=== PATIENT | female | born 1955 | race Caucasian/White ===

== ENCOUNTER 2019-01-12 14:12 | Outpatient (CLI) | payer OTHER, SELFPAY ==
[2019-01-12 14:58] LABS: INR 2.6 (0.9-1.1); Prothrombin Time 25.8 sec (9.3-11.0)
== END 2019-01-12 14:32 ==
PROVIDERS: Visit Provider Internal Medicine
DX: I82.491 Acute embolism and thrombosis of other specified deep vein of right lower extremity (principal); I26.99 Other pulmonary embolism without acute cor pulmonale; Z51.81 Encounter for therapeutic drug level monitoring; Z79.01 Long term (current) use of anticoagulants
CPT/HCPCS: 36415; 85610

== ENCOUNTER 2019-03-02 09:51 | Outpatient (CLI) | payer OTHER, MEDICAID, SELFPAY ==
[2019-03-02 11:05] LABS: Prothrombin Time 44.1 sec (9.3-11.0)
[2019-03-02 11:13] LABS: INR 4.6 (0.9-1.1)
[2019-03-02 11:36] LABS: Anion Gap 9.7 mmol/L (3-11); BUN 14 mg/dL (7-18); CO2 28.3 mmol/L (21.0-32.0); CREATININE 0.79 mg/dL (0.55-1.02); Calcium 8.4 mg/dL (8.5-10.1); Chloride 106 mmol/L (98-107); Glucose 108 mg/dL (74-106); Potassium 4.1 mmol/L (3.5-5.1); Sodium 144 mmol/L (136-145)
[2019-03-02 12:34] LABS: Vitamin D 25 Total 36.3 ng/ml (30-100)
== END 2019-03-02 10:11 ==
PROVIDERS: PCP Nurse Practitioner; Visit Provider Nurse Practitioner
DX: E21.0 Primary hyperparathyroidism (principal); I10 Essential (primary) hypertension; I25.10 Atherosclerotic heart disease of native coronary artery without angina pectoris; Z79.01 Long term (current) use of anticoagulants
CPT/HCPCS: 36415; 80048; 82306; 85610

== ENCOUNTER 2019-03-04 10:46 | Outpatient (CLI) | payer OTHER, MEDICAID, SELFPAY ==
[2019-03-04 14:11] LABS: INR 1.6 (0.9-1.1); Prothrombin Time 15.9 sec (9.3-11.0)
== END 2019-03-04 11:06 ==
PROVIDERS: PCP Nurse Practitioner; Visit Provider Nurse Practitioner
DX: I26.99 Other pulmonary embolism without acute cor pulmonale (principal); Z79.01 Long term (current) use of anticoagulants
CPT/HCPCS: 36415; 85610

== ENCOUNTER 2019-03-11 14:18 | Outpatient (CLI) | payer OTHER, MEDICAID, SELFPAY ==
[2019-03-11 15:00] LABS: INR 1.7 (0.9-1.1); Prothrombin Time 16.5 sec (9.3-11.0)
== END 2019-03-11 14:38 ==
PROVIDERS: PCP Nurse Practitioner; Visit Provider Nurse Practitioner
DX: I25.10 Atherosclerotic heart disease of native coronary artery without angina pectoris (principal); Z79.01 Long term (current) use of anticoagulants
CPT/HCPCS: 36415; 85610

== ENCOUNTER 2019-03-19 14:13 | Outpatient (CLI) | payer OTHER, MEDICAID, SELFPAY ==
[2019-03-19 15:38] LABS: INR 2.1 (0.9-1.1); Prothrombin Time 20.8 sec (9.3-11.0)
== END 2019-03-19 14:33 ==
PROVIDERS: PCP Nurse Practitioner; Visit Provider Nurse Practitioner
DX: I82.491 Acute embolism and thrombosis of other specified deep vein of right lower extremity (principal); I26.99 Other pulmonary embolism without acute cor pulmonale; Z79.01 Long term (current) use of anticoagulants; Z95.828 Presence of other vascular implants and grafts
CPT/HCPCS: 36415; 85610

== ENCOUNTER 2019-04-06 11:15 | Outpatient (CLI) | payer OTHER, MEDICAID, SELFPAY ==
[2019-04-06 14:18] LABS: Prothrombin Time 20.1 sec (9.3-11.0)
== END 2019-04-06 11:35 ==
PROVIDERS: PCP Nurse Practitioner; Visit Provider Nurse Practitioner
DX: I82.491 Acute embolism and thrombosis of other specified deep vein of right lower extremity (principal); Z79.01 Long term (current) use of anticoagulants
CPT/HCPCS: 36415; 85610

== ENCOUNTER 2019-04-13 10:16 | Outpatient (CLI) | payer OTHER, MEDICAID, SELFPAY ==
--- NOTE | 2019-04-13 10:24 | DI.RAD_ITS ---
EXAM: XR HIP RT COMPLETE AP PELVIS CLINICAL HISTORY: right hip pain COMPARISON: No exams were available for comparison FINDINGS: Three views were obtained. There is mild cartilaginous joint space narrowing of both hips. Prominen t subchondral sclerosis, cyst formation and marginal osteophyte formation noted involving both acetab ulae and both femoral heads. No other significant bony or soft tissue abnormality seen. IMPRESSION: Moderate DJD both hips.
--- NOTE | 2019-04-13 10:27 | DI.RAD_ITS ---
EXAM: XR KNEE LT 3V AP,LAT,CHRISTO CLINICAL HISTORY: left knee pain TECHNIQUE: COMPARISON: No exams were available for comparison FINDINGS: Three views were obtained. There is narrowing of the medial tibiofemoral cartilaginous joint space. There are very prominent marginal osteophytes of the medial tibiofemoral joint and patellofemoral rodrigo int. No other significant bony abnormality seen. IMPRESSION: DJD predominantly involving medial tibiofemoral joint.
--- NOTE | 2019-04-13 10:29 | DI.RAD_ITS ---
EXAM: XR KNEE RT 3V AP,LAT,CHRISTO CLINICAL HISTORY: right knee pain COMPARISON: XR KNEE LT 3V AP,LAT,CHRISTO from 04/13/2019 FINDINGS: Three views were obtained. There is narrowing of the medial tibiofemoral cartilaginous joint space. Moderate hypertrophic marginal osteophyte formation noted involving all 3 joints of the knee. There is deformity of the articular surface medial and lateral femoral condyles. Mild subchondral scleros is noted involving medial femoral condyle. IMPRESSION: Multi compartment DJD as described above.
== END 2019-04-13 10:36 ==
PROVIDERS: PCP Nurse Practitioner; Visit Provider Physician Assistant
DX: M25.561 Pain in right knee (principal); M25.562 Pain in left knee; M17.0 Bilateral primary osteoarthritis of knee; M25.551 Pain in right hip; M16.0 Bilateral primary osteoarthritis of hip
CPT/HCPCS: 73562; 73502

== ENCOUNTER 2019-04-20 09:16 | Outpatient (CLI) | payer OTHER, MEDICAID, SELFPAY ==
[2019-04-20 10:57] LABS: INR 1.9 (0.9-1.1); Prothrombin Time 18.6 sec (9.3-11.0)
== END 2019-04-20 09:36 ==
PROVIDERS: PCP Nurse Practitioner; Visit Provider Nurse Practitioner
DX: I26.99 Other pulmonary embolism without acute cor pulmonale (principal); I82.491 Acute embolism and thrombosis of other specified deep vein of right lower extremity; I25.10 Atherosclerotic heart disease of native coronary artery without angina pectoris; Z95.828 Presence of other vascular implants and grafts
CPT/HCPCS: 36415; 85610

== ENCOUNTER 2019-04-30 01:01 | Outpatient (CLI) | payer MEDICARE, MEDICAID, SELFPAY ==
--- NOTE | 2019-04-30 14:50 | DI.RAD_ITS ---
EXAM: RF JOINT INJECTION FLUORO GUID CLINICAL HISTORY: R HIP INJ UNDER FLUORO,rt hi pain, m25.551 TECHNIQUE: Fluoroscopy was utilized by Dr. Michael during right hip injection. COMPARISON: No exams were available for comparison FINDINGS: Hard copy shows intraarticular injection of the right hip. Fluoro time was 0.9 minutes.
[2019-04-30] MEDS: methylPREDNISolone ACETATE 80 MG/ML VIAL IM (15:42)
[2019-04-30] MEDS: Omnipaque 300 MG/ML 10 ML BTL IJ (15:42)
[2019-04-30] MEDS: Bupivacaine 0.5% Pres-Free 10 ML VIAL 50 ML IJ (15:43)
--- NOTE | 2019-05-01 07:19 | W.PROCNOTE ---
Date of service: 04/30/19 Time of Service: 15:19 Procedure Note Date of procedure: 04/30/19 Procedure: Right Hip Injection with Fluoroscopic Guidance Surgeon/Proceduralist/Physician: Harvinder Michael Procedure Diagnosis: Right Hip Osteoarthritis Procedure Indications: Radha has had persistent pain of the RIGHT hip and groin. Noninvasive measures have been tried. To serve as both diagnostic and therapeutic, an injection under fluoroscopy was recommended. I had discussed the risks of the procedure and the patient elected to proceed. Procedure Description: Radah was greeted in the flouroscopy room. The correct side was identified and the consent was reviewed with the patient and signed. The patient was then placed in the supine position on the fluoroscopy table. The RIGHT hip was then prepped with Chloraprep. The anterolateral injection starting point was identiifed by bony landmarks and fluoroscopy. The skin and soft tissue in the tract of the injection was anesthetized with 1% Lidocaine. A spinal needle was then inserted deep into the hip joint at the level of the lateral femoral neck under fluoroscopic guidance. A small amount of Omnipaque solution was injected to confirm intraarticular placement. Once confirmed, the hip was injected with 6cc of 0.5% Bupivicaine and 80mg of Depo-Medrol. A bandaid was placed on the injection site. The patient tolerated the procedure well and noted improvement in pre-injection pain.
== END 2019-04-30 01:21 ==
PROVIDERS: PCP Nurse Practitioner; Visit Provider Student in an Organized Health Care Education/Training Program
DX: M25.551 Pain in right hip (principal); M16.11 Unilateral primary osteoarthritis, right hip; Z12.11 Encounter for screening for malignant neoplasm of colon; Z86.010 Personal history of colon polyps; I11.0 Hypertensive heart disease with heart failure; I50.9 Heart failure, unspecified; E11.9 Type 2 diabetes mellitus without complications; Z79.84 Long term (current) use of oral hypoglycemic drugs; Z79.01 Long term (current) use of anticoagulants
CPT/HCPCS: 20610; 77002; J1040

== ENCOUNTER 2019-05-05 11:46 | Outpatient (CLI) | payer MEDICARE, MEDICAID, SELFPAY ==
[2019-05-05 12:55] LABS: INR 2.2 (0.9-1.1); Prothrombin Time 21.4 sec (9.3-11.0)
== END 2019-05-05 12:06 ==
PROVIDERS: PCP Nurse Practitioner; Visit Provider Nurse Practitioner
DX: I82.491 Acute embolism and thrombosis of other specified deep vein of right lower extremity (principal); Z79.01 Long term (current) use of anticoagulants
CPT/HCPCS: 36415; 85610

== ENCOUNTER 2019-05-14 10:09 | Day surgery (SDC) | payer MEDICARE, SELFPAY ==
[2019-05-14 10:25] VITALS: BP 117/85; PULSE 67; RESP 20; TEMP 36.5; O2SAT 97
[2019-05-14] MEDS: Lactated Ringers 1,000 ML 80 ML IV (11:00)
--- NOTE | 2019-05-14 11:56 | DI.CT_ITS ---
EXAM: CT CHEST PE CTA CLINICAL HISTORY: left lung pain similar to prior PE/hx of mult PE. TECHNIQUE: Imaging Protocol: Axial CT angiography was performed with multi-slice acquisition and mu lti-planar and/or 3D reconstructions. CONTRAST MATERIAL: Intravenous: Omnipaque 350 Contrast volume: 100 ml COMPARISON: No exams were available for comparison FINDINGS: Pulmonary Arteries: No evidence of filling defect to suggest pulmonary emboli. Tracheobronchial tree: Patent where visualized. Mediastinum and Regla: No dominant adenopathy or fluid collection. Pulmonary parenchyma: No consolidation or dominant measurable mass. No architectural distortion. Pleura: No effusion or pneumothorax. Heart: The heart is not dilated. Mild coronary artery calcifications are seen. Aorta: Thoracic aorta non-dilated. Upper abdomen: Enlarged fatty liver. Bones: Mild degenerative changes in the thoracic spine. IMPRESSION: No evidence of pulmonary embolism or other acute abnormality. DATA REPOSITORY: All CT scans at this facility are submitted to the National Radiology Data Registry (NRDR) Dose Index Registry (DIR) with the [employer] (ACR). RADIATION OPTIMIZATION: All CT scans at this facility use at least one of these dose optimization te chniques: automated exposure control; mA and/or kV adjustment per patient size (includes targeted exa ms where dose is matched to clinical indication); or iterative reconstruction.
[2019-05-14 12:08] LABS: Prothrombin Time 10.4 sec (9.3-11.0)
--- NOTE | 2019-05-14 12:13 | PGE_ITS ---
Date of Service Date of service: 05/14/19 Time of Service: 12:13 Assessment and Plan Assessment and plan (1) Family hx of colon cancer: Status: Acute Assessment and plan: will do Cologuard (2) Chronic anticoagulation: Status: Acute Assessment and plan: resume coumadin therapy I'm going to talk to Dr. Alarcon about bridging lovenox. (3) Presence of IVC filter: Status: Acute (4) Asthma: Status: Chronic Qualifiers: Asthma severity: moderate Asthma persistence: persistent Asthma complication type: uncomplicated Qualified Code(s): J45.40 - Moderate persistent asthma, uncomplicated (5) Chronic diastolic (congestive) heart failure: Status: Acute (6) CAD (coronary artery disease): Status: Chronic Qualifiers: Coronary Disease-Associated Artery/Lesion type: unspecified vessel or lesion type [place] vs. transplanted heart: [place] heart Associated angina: angina presence unspecified Qualified Code(s): I25.10 - Atherosclerotic heart disease of [place] coronary artery without angina pectoris (7) Chronic deep vein thrombosis (DVT): Status: Acute (8) Chronic deep vein thrombosis (DVT) of left femoral vein: Status: Acute (9) Chronic deep vein thrombosis (DVT) of popliteal vein of left lower extremity: Status: Acute Subjective Subjective Interval history since last seen: pt is here today for a routine CE for screening. Her mther had CRC in her 70's. She has been having no changes in her bowels. She has no pain or difficulty having a bowel movement and has not noted any bleeding. She has a hx of unprovoked PE's. She has been worked up for a hypercoag d/o- all genetic testing was neg. Her last US dopplers was in fall of 2018 and does show chronic DVT in femoral/popliteal veins. But there were no clots on long stalk or near the bifurcaton. She has an IVC filter in place. She had a spontaneous splenic rupture while she was on a NOAC. 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 This was treated w/ emobolization. The IVC filter was placed and she was kept off of anticoag x1 month. She had a JANIYA in 2017: EF 65% mild LV enlargment mild pulm HTN no signif vavular Dx. She had cardiac stents done 8 yrs ago She was seen by Hem at [facility] adn was told she did not need to bridge for the CE and just hold coumadin for 5 days Today she does admit that she has been having pain in ht eleft lung since it got cold out - and it is similar to the pain she had when she had her first clot. She is always SOB and there isno change in this today. She has no cough and no CP today. no URT s/s. She has been off coumadin for 5 days POC cardiac US- the pic is very grainy and I cannot visualize any clots or distinct valve motion. EF/function appears to be preserved. But the pic is not clear enough to detect any clots today. Given the pain she has been having and chronic SOB- I don't think she stable for elective anethesia. CE is low risk procedure, but I given her Hx of mult PE's and chronic DVT, I think she should have been bridged w/ LMH. I don't think she is good candidate for an elective procedure and she should have a CT angio of chest for PE. we will cancel the CE today. She can do a colo guard at home. Exam Chest Chest: normal inspection of the chest Resp Effort & Inspection: normal respiratory effort and able to speak in complete sentences Auscultation: clear to auscultation bilaterally Cardio Rate: regular rate Rhythm: regular rhythm Heart Sounds: S1 normal and S2 normal GI Palpation: soft, nontender and No ascites Auscultation: normal bowel sounds Objective Objective Clinical Data: Vital Signs Temperature 36.5 C 05/14/19 10:25 Pulse 67 05/14/19 10:25 Pulse Rhythm Regular 05/14/19 10:25 Respiratory Rate 20 05/14/19 10:25 Respiratory Depth Normal 05/14/19 10:25 Blood Pressure 117/85 05/14/19 10:25 Pulse Oximetry 97 05/14/19 10:25 Oxygen Delivery Method Room Air 05/14/19 10:25 Oxygen Flow Rate 0 05/14/19 10:25 Pain Level 0 05/14/19 10:25 Intake & Output 05/13/19 05/14/19 05/14/19 23:59 11:59 23:59 Weight 105.7 kg
--- NOTE | 2019-05-14 12:32 | NUR.NOTE ---
Colonoscopy cancelled. chest CT pending. #18 left AC saline lock placed. [id number] remains at bedside. Drnking coffee and tolerating well. Nursing Note:
[2019-05-14 12:50] LABS: D-Dimer 347 ng/mlFEU (<500)
[2019-05-14] MEDS: Omnipaque 350 MG/ML 100 ML BTL IJ (12:55)
--- NOTE | 2019-05-14 13:44 | W.PM.DSUDISC ---
Discharge Plan Disposition Patient Disposition: HOME Condition: Good Discharge Details Reason For Visit: cancelled procedure Attending Provider: Radha Liu Primary Care Provider: Kylee Yin Home Meds and New Rx's Prescriptions: New enoxaparin 100 mg/mL Syringe 100 mg subcut NOW 1 Days RF: 0 enoxaparin 100 mg/mL syringe 100 mg SC Q12H Qty: 8 RF: 0 Continued Shingrix (PF) 50 mcg/0.5 mL suspension for reconstitution 0.5 ml IM ONCE Qty: 1 RF: 0 polyethylene glycol 3350 17 gram/dose powder 238 g PO ONCE Qty: 238 RF: 0 omeprazole 40 mg capsule,delayed release(DR/EC) 40 mg PO Q OTHER DAY Qty: 90 RF: 3 atorvastatin 40 mg tablet 40 mg PO QHS Qty: 90 RF: 3 furosemide 20 mg tablet 20 mg PO DAILY Qty: 90 RF: 3 losartan 25 mg tablet 25 mg PO DAILY Qty: 90 RF: 3 warfarin 5 mg tablet 5 mg PO DAILY Qty: 120 RF: 0 albuterol sulfate 90 mcg/actuation HFA aerosol inhaler 2 puff IH Q4H PRNRF: 0 calcium carbonate-vit D3-min 600 mg calcium- 400 unit tablet 1 tab PO TID RF: 0 cholecalciferol (vitamin D3) 50,000 unit capsule 50,000 unit PO QMONTH RF: 0 coenzyme Q10 10 mg capsule 10 mg PO Q OTHER DAY RF: 0 fluticasone propion-salmeterol [Advair Diskus] 250-50 mcg/dose blister with device 1 inh IH BID RF: 0 metformin 750 mg tablet extended release 24 hr 750 mg PO QPM RF: 0 nitroglycerin 0.4 mg tablet, sublingual 0.4 mg SL Q5M PRNRF: 0 clonazepam 0.5 mg tablet 0.25 mg PO BID PRN (Reason: anxiety) RF: 0 magnesium chloride 64 mg tablet,delayed release (DR/EC) 250 mg PO DAILY RF: 0 sertraline 25 mg tablet 25 mg PO DAILY Qty: 30 RF: 1 bupropion HCl 150 mg tablet extended release 24 hr 150 mg PO DAILY RF: 0 Discontinued bisacodyl [Dulcolax (bisacodyl)] 5 mg tablet,delayed release (DR/EC) 5 mg PO ONCE Qty: 4 RF: 0 Discharge Instructions Additional Instructions: -resume coumadin today -lovenox q 12 until therapeutic. -F/u saturday for INR check Activity:: Activity as Tolerated Diet:: Carb Counting Discharge Orders Discharge Orders: Discharge Order (Routine); Ordered 05/14/19 Ordered By: Radha Liu DS: Diagnosis Discharge Diagnosis (1) Family hx of colon cancer: Status: Acute (2) Chronic anticoagulation: Status: Acute (3) Presence of IVC filter: Status: Acute (4) Asthma: Status: Chronic (5) Chronic diastolic (congestive) heart failure: Status: Acute (6) CAD (coronary artery disease): Status: Chronic (7) Chronic deep vein thrombosis (DVT): Status: Acute (8) Chronic deep vein thrombosis (DVT) of left femoral vein: Status: Acute (9) Chronic deep vein thrombosis (DVT) of popliteal vein of left lower extremity: Status: Acute
[2019-05-14] MEDS: Enoxaparin 100 MG/ML SYR SC (14:04)
--- NOTE | 2019-05-14 14:08 | NUR.NOTE ---
IV access X2 discontinued. Lovenox given. Discharged to home with [id number].Nursing Note:
== END 2019-05-14 14:20 | disposition home or self-care (01) ==
PROVIDERS: PCP Nurse Practitioner; Visit Provider Surgery
DX: Z12.11 Encounter for screening for malignant neoplasm of colon (principal); Z80.0 Family history of malignant neoplasm of digestive organs; Z53.09 Procedure and treatment not carried out because of other contraindication; R07.89 Other chest pain; Z86.711 Personal history of pulmonary embolism; Z95.828 Presence of other vascular implants and grafts; Y66 Nonadministration of surgical and medical care
CPT/HCPCS: 36415; 71275; 99232; 85379; 85610; J1650; J3490

== ENCOUNTER 2019-05-19 09:13 | Outpatient (CLI) | payer MEDICARE, SELFPAY ==
[2019-05-19 12:35] LABS: Prothrombin Time 9.7 sec (9.3-11.0)
== END 2019-05-19 09:33 ==
PROVIDERS: PCP Nurse Practitioner; Visit Provider Nurse Practitioner
DX: Z79.01 Long term (current) use of anticoagulants (principal); I26.99 Other pulmonary embolism without acute cor pulmonale
CPT/HCPCS: 36415; 85610

== ENCOUNTER 2019-05-22 08:59 | Outpatient (CLI) | payer MEDICARE, MEDICAID, SELFPAY ==
[2019-05-22 12:09] LABS: INR 1.1 (0.9-1.1); Prothrombin Time 11.1 sec (9.3-11.0)
== END 2019-05-22 09:19 ==
PROVIDERS: PCP Nurse Practitioner; Visit Provider Nurse Practitioner
DX: I25.10 Atherosclerotic heart disease of native coronary artery without angina pectoris (principal); Z86.718 Personal history of other venous thrombosis and embolism; Z79.01 Long term (current) use of anticoagulants
CPT/HCPCS: 36415; 83036; 85610

== ENCOUNTER → 2019-05-25 10:58 | Outpatient (BNVA) | payer MEDICARE, SELFPAY | PROVIDERS: PCP Nurse Practitioner; Referring Provider Nurse Practitioner; Visit Provider Student in an Organized Health Care Education/Training Program | DX: M17.11 Unilateral primary osteoarthritis, right knee (principal); M17.12 Unilateral primary osteoarthritis, left knee; M16.11 Unilateral primary osteoarthritis, right hip | CPT/HCPCS: 20610; 99213; J1040 ==

== ENCOUNTER 2019-05-26 10:12 | Outpatient (CLI) | payer MEDICARE, SELFPAY ==
[2019-05-26 11:21] LABS: INR 1.4 (0.9-1.1); Prothrombin Time 13.6 sec (9.3-11.0)
== END 2019-05-26 10:32 ==
PROVIDERS: PCP Nurse Practitioner; Visit Provider Nurse Practitioner
DX: I25.10 Atherosclerotic heart disease of native coronary artery without angina pectoris (principal); Z86.718 Personal history of other venous thrombosis and embolism; Z79.01 Long term (current) use of anticoagulants
CPT/HCPCS: 36415; 85610

== ENCOUNTER 2019-10-06 11:59 | Outpatient (REF) | payer MEDICARE, SELFPAY ==
[2019-10-06 12:55] LABS: Calculated LDL 84 mg/dL (<100); Cholesterol 168 mg/dL (<200); HDL Cholesterol 46 mg/dL (40-60); Triglyceride 190 mg/dL (<150)
[2019-10-06 13:06] LABS: Hemoglobin A1C 6.2 % (3.8-5.6)
== END 2019-10-06 12:19 ==
LOC: LBN 11:59
PROVIDERS: PCP Nurse Practitioner; Visit Provider Nurse Practitioner
DX: E11.9 Type 2 diabetes mellitus without complications (principal)
CPT/HCPCS: 80061; 83036

== ENCOUNTER → 2019-11-10 13:19 | Outpatient (BNVA) | payer MEDICARE, SELFPAY | PROVIDERS: PCP Nurse Practitioner; Referring Provider Nurse Practitioner; Visit Provider Internal Medicine Cardiovascular Disease | DX: I25.10 Atherosclerotic heart disease of native coronary artery without angina pectoris (principal); I50.32 Chronic diastolic (congestive) heart failure; I11.0 Hypertensive heart disease with heart failure; I82.502 Chronic embolism and thrombosis of unspecified deep veins of left lower extremity; E11.9 Type 2 diabetes mellitus without complications; Z79.84 Long term (current) use of oral hypoglycemic drugs; Z79.01 Long term (current) use of anticoagulants | CPT/HCPCS: 99203; 99214 ==

== ENCOUNTER 2020-03-08 09:41 | Outpatient (CLI) | payer MEDICARE, SELFPAY ==
[2020-03-10 21:30] LABS: COVID-19 RT-PCR Result NEGATIVE (Negative)
== END 2020-03-08 10:01 ==
PROVIDERS: PCP Nurse Practitioner; Visit Provider Nurse Practitioner
DX: Z11.59 Encounter for screening for other viral diseases (principal)
CPT/HCPCS: U0003

== ENCOUNTER 2020-05-03 02:17 | Outpatient (CLI) | payer MEDICARE, SELFPAY ==
[2020-05-03 13:04] LABS: CREATININE 0.9 mg/dL (0.55-1.02); Calculated LDL 87 mg/dL (<100); Cholesterol 182 mg/dL (<200); HDL Cholesterol 58 mg/dL (40-60); Potassium 4.8 mmol/L (3.5-5.1); Triglyceride 185 mg/dL (<150)
[2020-05-03 13:51] LABS: COMMENT (LAB VIEW ONLY) 161.26 mg/dL; Microalb ug/mg Crea 7.2 ug/mg Cr
== END 2020-05-03 02:18 | disposition home or self-care (01) ==
LOC: LOS 02:18
PROVIDERS: PCP Nurse Practitioner; Visit Provider Nurse Practitioner
DX: E11.9 Type 2 diabetes mellitus without complications (principal); I10 Essential (primary) hypertension; E21.0 Primary hyperparathyroidism
CPT/HCPCS: 36415; 80061; 82043; 82310; 82565; 82570; 84132

== ENCOUNTER → 2020-06-03 13:40 | Outpatient (BNVA) | payer MEDICARE, SELFPAY | PROVIDERS: PCP Nurse Practitioner; Referring Provider Nurse Practitioner; Visit Provider Internal Medicine Cardiovascular Disease | DX: I25.10 Atherosclerotic heart disease of native coronary artery without angina pectoris (principal); E78.00 Pure hypercholesterolemia, unspecified; I10 Essential (primary) hypertension | CPT/HCPCS: 99214; 99213 ==

== ENCOUNTER 2020-06-09 00:42 | Outpatient (CLI) | payer MEDICARE, SELFPAY ==
--- NOTE | 2020-06-09 07:30 | DI.NM_ITS ---
APPROVED REPORT Exam: Exercise Treadmill Patient Location: Out-Patient Room/Bed: Stress Nurse: Emily Parker RN Ordering Provider:KATHE ESPITIA, Contact Number: BMI: 42.73 Baseline Rhythm: Sinus Rhythm Indications: CORONARY ARTERY DISEASE. Medical History Medical History: CAD, HTN, Hypercholesteremia, Anxiety, Depression, DVT, DM, GERD, Obesity, Tobacco u se Cardiac Medications: Advair inhaler, Albuterol sulfate inhaler, Apixaban, Aspirin, Atorvastatin, Janee zyme Q10, Losartan, Magnesium chloride, Metformin, Nitro SL, Omeprazole., Allergies: Amoxicillin Cardiac Risk Factors: FHX of CAD, HTN, Hyperlipidemia, DM, Smoking (former) , Obesity Previous Cardiac Procedures: PCI w/ KEVIN (2011) Pretest Chest Pain Characteristics: No chest pain Exercise History: Sedentary Physical Disabilities: None. Lung Sounds: Clear to auscultation Heart Sounds: Regular Stress Test Details Test: Exercise stress testing was performed using a Brian protocol. Nuclear Acquisition: Rest Tc-99m/Stress Tc-99m 1 day Rest Isotope: Tc-99m Sestamibi. Dose: 14.2 Date: 06/09/20 Injection Time: 1115 Stress Isotope: Tc-99m Sestamibi. Dose: 45.2 Date: 06/09/20 Injection Time: 1325 HR Resting HR Supine: 61 bpm Max Heart Rate (APMHR): 154.335116 bpm Resting HR Standin bpm Target HR (85% APMHR): 130.125626 bpm Max HR Achieved: 143 bpm % of APMHR: 92.86 Recovery HR: 79 bpm HR response to stress: Normal HR response to stress BP Resting BP Supine: 138/76 mmHg Resting BP Standin/82 mmHg Max BP: 178/76 mmHg Recovery BP: 144/88 mmHg BP response to stress: Normal blood pressure response to stress. ECG Resting ECG: Sinus Rhythm Ectopy: None. Stress ECG: Sinus Tachycardia ST Change: No significant ST segment changes noted Arrhythmia: None Recovery ECG: Sinus Rhythm, Recovery ST Change: No significant ST segment changes noted Recovery Arrhythmia: PAC, PVC Clinical Reason for Termination: Fatigue Stress Symptoms: General Fatigue, Dyspnea Exercise duration: 5 min19 sec Highest Stage Reached: Stage 2: 2.5 mph at 12% grade. Exercise capacity: 7.05 METs Bob Treadmill Score: 5 Rate Pressure Product: [id number] Stress ECG Conclusion 1. The resting electrocardiogram was normal 2. Patient exercised on the Brian protocol and completed a workload of 7.05 METS, limited by fatigue. She achieved 92% of predicted heart rate for age 3. Normal heart rate and blood pressure response to exercise 4. Echocardiographically negative for myocardial ischemia 5. Sporadic atrial and ventricular ectopic beats noted Bob Treadmill Score is 5 which is Low risk. Stress Test Summary STAGE Time (mins) Speed (mph) Grade (%) HR BP SYMPTOMS METS Supine 61 138/76 Standing 73 132/82 1 3 1.7 10 119 154/70 4.6 2 6 2.5 12 SpO2 98% 7 1 min recovery 119 178/76 3 min recovery 77 172/88 6 min recovery 79 144/88 MPI Conclusion Normal myocardial perfusion without evidence of prior infarction or ischemia EF was 71% Radiologist Interpretation Radiologist Interpretation by: Nam Allen MD Interpretation Date/Time: 06/14/2020 16:23:05
== END 2020-06-09 01:02 ==
LOC: DI 00:42
PROVIDERS: PCP Nurse Practitioner; Visit Provider Internal Medicine Cardiovascular Disease
DX: I25.10 Atherosclerotic heart disease of native coronary artery without angina pectoris (principal); Z82.49 Family history of ischemic heart disease and other diseases of the circulatory system; I10 Essential (primary) hypertension; E78.5 Hyperlipidemia, unspecified; E11.9 Type 2 diabetes mellitus without complications; Z87.891 Personal history of nicotine dependence; E66.9 Obesity, unspecified; I49.1 Atrial premature depolarization; I49.3 Ventricular premature depolarization
CPT/HCPCS: 78452; 93016; 93018; 93306; 93017

== ENCOUNTER → 2020-06-10 13:31 | Outpatient (BNVA) | payer MEDICARE, SELFPAY | PROVIDERS: PCP Nurse Practitioner; Referring Provider Nurse Practitioner; Visit Provider Internal Medicine Cardiovascular Disease | DX: I25.10 Atherosclerotic heart disease of native coronary artery without angina pectoris (principal) | CPT/HCPCS: 99213 ==

== ENCOUNTER → 2020-06-30 08:47 | Outpatient (BNVA) | payer MEDICARE, SELFPAY | PROVIDERS: PCP Nurse Practitioner; Referring Provider Nurse Practitioner; Visit Provider Student in an Organized Health Care Education/Training Program | DX: M67.431 Ganglion, right wrist (principal); Z95.828 Presence of other vascular implants and grafts; Z79.01 Long term (current) use of anticoagulants | CPT/HCPCS: 99213 ==

== ENCOUNTER 2021-05-03 01:39 | Outpatient (CLI) | payer MEDICARE, SELFPAY ==
[2021-05-03 08:27] LABS: Hemoglobin A1C 6.6 % (<5.7)
[2021-05-03 09:10] LABS: Anion Gap 9.9 mmol/L (3-11); BUN 15 mg/dL (7-18); CO2 27.1 mmol/L (21.0-32.0); CREATININE 0.8 mg/dL (0.55-1.02); Calcium 8.6 mg/dL (8.5-10.1); Calculated LDL 88 mg/dL (<100); Chloride 106 mmol/L (98-107); Cholesterol 183 mg/dL (<200); Glucose 120 mg/dL (74-106); HDL Cholesterol 55 mg/dL (40-60); Potassium 4.4 mmol/L (3.5-5.1); Sodium 143 mmol/L (136-145); Triglyceride 203 mg/dL (<150)
== END 2021-05-03 01:40 | disposition home or self-care (01) ==
LOC: LBO 01:39
PROVIDERS: PCP Nurse Practitioner; Visit Provider Nurse Practitioner
DX: I10 Essential (primary) hypertension (principal); E11.9 Type 2 diabetes mellitus without complications
CPT/HCPCS: 36415; 80048; 80061; 83036

== ENCOUNTER 2021-05-29 03:01 | Outpatient (CLI) | payer MEDICARE, SELFPAY ==
--- NOTE | 2021-05-29 07:15 | DI.MAMMO_ITS ---
Exam(s) MAMMO SCREENING EXAM: MAMMO SCREENING CLINICAL HISTORY: screening,z12.39 TECHNIQUE: Mammograms were interpreted according to the usual protocol including computer analysis w [employer] CAD system, tomosynthesis and C-view imaging. COMPARISON: 2014 through 2018 from [place], [place] FINDINGS: The breasts are composed of mainly fatty density , Breast Density category A. No suspicious masses or suspicious microcalcifications are seen. No skin thickening or abnormal axillary lymph nodes are seen. There has been no significant change from prior exams. IMPRESSION: BI-RADS Category 1, Negative mammogram Yearly screening mammography is recommended. Breast Density - Category A, fatty density. A negative radiographic report should not delay biopsy if a dominant or clinically suspicious mass is present. Up to ten percent of cancers are not identified on mammography. A negative report may reinforce clinical impression. Adenosis and dense breasts may obscure an underlying neoplasm. False positive reports average 6 to 10%. Patient will receive a letter notifying them of these results.
== END 2021-05-29 03:21 ==
PROVIDERS: PCP Nurse Practitioner; Visit Provider Nurse Practitioner
DX: Z12.31 Encounter for screening mammogram for malignant neoplasm of breast (principal)
CPT/HCPCS: 77063; 77067

== ENCOUNTER 2021-07-28 13:11 | Outpatient (CLI) | payer MEDICARE, SELFPAY ==
[2021-07-28 15:03] LABS: Anion Gap 10.1 mmol/L (3-11); BUN 17 mg/dL (7-18); CO2 27.9 mmol/L (21.0-32.0); CREATININE 0.8 mg/dL (0.55-1.02); Calcium 8.9 mg/dL (8.5-10.1); Chloride 104 mmol/L (98-107); Glucose 105 mg/dL (74-106); NT-proBNP 25 pg/mL (<300); Potassium 4.1 mmol/L (3.5-5.1); Sodium 142 mmol/L (136-145)
== END 2021-07-28 13:12 | disposition home or self-care (01) ==
LOC: LBO 13:15
PROVIDERS: PCP Nurse Practitioner; Visit Provider Nurse Practitioner Family
DX: R06.02 Shortness of breath (principal); I50.32 Chronic diastolic (congestive) heart failure
CPT/HCPCS: 36415; 80048; 83735; 83880

== ENCOUNTER 2021-08-03 12:12 | Emergency (ER) | payer MEDICARE, SELFPAY ==
--- NOTE | 2021-08-03 12:28 | W.ED.GENAD ---
Discharge Plan Disposition Patient Disposition: HOME Condition: Stable Discharge Details Clinical Impression: Rash Primary Care Provider: Kylee Yin ED Provider: Laura Coughlin Home Meds and New Rx's Prescriptions: New methylprednisolone [Medrol (Antwon)] 4 mg tablets,dose pack See Rx Instructions .ROUTE .COMPLEX Qty: 21 0RF Rx Instructions: orally per package directions Continued metformin 750 mg tablet extended release 24 hr 750 mg PO QPM Qty: 90 4RF nitroglycerin 0.4 mg tablet, sublingual 0.4 mg sublingual Q5M PRN (Reason: chest pain) Qty: 90 3RF Rx Instructions: 1 sl prn chest pain omeprazole 40 mg capsule,delayed release(DR/EC) 40 mg PO DAILY Qty: 90 3RF sertraline 100 mg tablet 100 mg PO DAILY Qty: 30 0RF fluticasone propion-salmeterol [Advair Diskus] 250-50 mcg/dose blister with device 1 inh IH BID Qty: 60 11RF nystatin 100,000 unit/gram powder 1 applic topical TID Qty: 30 0RF cefpodoxime 100 mg tablet 100 mg PO BID Qty: 14 0RF Rx Instructions: must administer with a meal/food magnesium chloride 64 mg tablet,delayed release (DR/EC) 256 mg PO DAILY triamcinolone acetonide 0.1 % cream 1 applic topical BID Qty: 30 2RF Rx Instructions: local application on palms in thin layer twice a day until rash is gone aspirin [Adult Low Dose Aspirin] 81 mg tablet,delayed release (DR/EC) 81 mg PO DAILY Qty: 30 0RF albuterol sulfate 90 mcg/actuation HFA aerosol inhaler 2 puff IH Q4H PRN (Reason: wheezing) Qty: 18 3RF coenzyme Q10 10 mg capsule 200 mg PO DAILY cholecalciferol (vitamin D3) 1,250 mcg (50,000 unit) capsule 50,000 unit PO QMONTH Qty: 14 0RF bupropion HCl 150 mg tablet extended release 24 hr 150 mg PO QAM Qty: 90 4RF Eliquis 2.5 mg tablet 2.5 mg PO BID Qty: 180 4RF hydroxyzine HCl 25 mg tablet 25 mg PO TID PRN (Reason: itching) Qty: 60 0RF atorvastatin 40 mg tablet 40 mg PO QHS Qty: 90 3RF furosemide 20 mg tablet 20 mg PO DAILY Qty: 90 3RF losartan 50 mg tablet 50 mg PO DAILY Qty: 90 3RF Discharge Instructions Instructions: Acute Rash (ED) Additional Instructions: Stop taking the antibiotic you have been taking this week. You can continue the topical steroid cream as directed. If you have no relief or worsening of symptoms today, start the oral steroid prescription which has been sent electronically to your pharmacy. You can take chtp-yfl-linelhw non-sedating antihistamines such as Zyrtec, Claritin or Lydia as needed and directed for itching. You can take Benadryl as needed and directed for itching at night. Follow-up with your primary care doctor in 1 week. Return to the emergency department with any worsening or new concerning symptoms. Discharge Data Discharge Date/Time-TO BE ENTERED AT DEPARTURE: 08/03/21 12:59 Discharge Physician: Laura Coughlin Medical Decision Making 65-year-old female who has been taking cefpodoxime for the past 6 days for an ear infection presents for pruritic erythematous rash noted to her bilateral upper extremities for the past few days. Denies any difficulty breathing or swallowing. Vitals within normal limits. Patient appears comfortable and nontoxic. Normal oropharynx. Lungs clear bilaterally. She has an erythematous maculopapular rash noted to bilateral upper extremities. No significant urticaria but no evidence of abscess, vesicles or bleeding. History and presentation does not appear consistent with cellulitis. Her last dose of cefpodoxime was yesterday morning. She was advised to not take this medication any further. Advised to continue the topical hydrocortisone. Discussed that her symptoms may resolve with stopping the offending agent if this is an allergic reaction, but if symptoms do not improve, a prescription for oral steroids has been sent electronically to take as directed until finished. Her TMs appear normal bilaterally and do not see medication for for ear infection at this time. Advised to follow up with the primary care doctor for re-evaluation. Usual and customary return precautions given prior to discharge. HPI General Mode of arrival: ambulatory. Date/Time Provider Initiated Documentation: 08/03/21 12:13. Limitations to Documentation: no limitations. Information obtained by: patient. HPI Narrative: Pt is a 65yo F who has been taking cefpodoxime for an ear infection for the past week presents with itchy red rash to her arms for the past 3 days. Patient states she has taken 9 doses of cefpodoxime. She states her ear pain has now resolved. She states the rash on her arm is itchy and denies any significant pain. She has been using topical steroids without relief. She denies any fever, difficulty swallowing or difficulty breathing. Related Data Home Medications Medication Instructions Recorded Confirmed aspirin 81 mg tablet,delayed 81 mg PO DAILY #30 tabs 07/03/19 08/03/21 release (Adult Low Dose Aspirin) albuterol sulfate 90 mcg/actuation 2 puff inhalation Q4H PRN wheezing 03/11/20 08/03/21 aerosol inhaler #18 grams coenzyme Q10 10 mg capsule 200 mg PO DAILY 04/08/20 08/03/21 cholecalciferol (vitamin D3) 1,250 50,000 unit PO QMONTH #14 caps 08/11/20 08/03/21 mcg (50,000 unit) capsule magnesium chloride 64 mg 256 mg PO DAILY 10/06/20 08/03/21 (magnesium chloride) tablet,delayed release bupropion HCl 150 mg 24 hr tablet, 150 mg PO QAM #90 tabs 10/14/20 08/03/21 extended release apixaban 2.5 mg tablet (Eliquis) 2.5 mg PO BID #180 tabs 10/18/20 08/03/21 fluticasone 250 mcg-salmeterol 50 1 inh inhalation BID #60 ea 10/27/20 08/03/21 mcg/dose blistr powdr for inhalation (Advair Diskus) nystatin 100,000 unit/gram topical 1 applic topical TID #30 grams 11/07/20 08/03/21 powder triamcinolone acetonide 0.1 % 1 applic topical BID #30 grams 11/16/20 08/03/21 topical cream hydroxyzine HCl 25 mg tablet 25 mg PO TID PRN itching #60 tabs 12/09/20 08/03/21 atorvastatin 40 mg tablet 40 mg PO QHS #90 tabs 03/29/21 08/03/21 furosemide 20 mg tablet 20 mg PO DAILY #90 tabs 03/29/21 08/03/21 metformin 750 mg tablet,extended 750 mg PO QPM #90 tabs 04/13/21 08/03/21 release 24 hr nitroglycerin 0.4 mg sublingual 0.4 mg sublingual Q5M PRN chest 04/13/21 08/03/21 tablet pain #90 tabs omeprazole 40 mg capsule,delayed 40 mg PO DAILY #90 caps 04/13/21 08/03/21 release sertraline 100 mg tablet 100 mg PO DAILY #30 tabs 04/13/21 08/03/21 losartan 50 mg tablet 50 mg PO DAILY #90 tabs 05/29/21 08/03/21 cefpodoxime 100 mg tablet 100 mg PO BID #14 tabs 07/28/21 08/03/21 Medrol (Antwon) 4 mg tablets in a See Rx Instructions PO .COMPLEX 08/03/21 dose pack (methylprednisolone) #21 dose pk Previous Rx's Medication Instructions Recorded aspirin 81 mg tablet,delayed 81 mg PO DAILY #30 tabs 07/03/19 release (Adult Low Dose Aspirin) albuterol sulfate 90 mcg/actuation 2 puff inhalation Q4H PRN wheezing 03/11/20 aerosol inhaler #18 grams cholecalciferol (vitamin D3) 1,250 50,000 unit PO QMONTH #14 caps 08/11/20 mcg (50,000 unit) capsule bupropion HCl 150 mg 24 hr tablet, 150 mg PO QAM #90 tabs 10/14/20 extended release apixaban 2.5 mg tablet (Eliquis) 2.5 mg PO BID #180 tabs 10/18/20 fluticasone 250 mcg-salmeterol 50 1 inh inhalation BID #60 ea 10/27/20 mcg/dose blistr powdr for inhalation (Advair Diskus) nystatin 100,000 unit/gram topical 1 applic topical TID #30 grams 11/07/20 powder triamcinolone acetonide 0.1 % 1 applic topical BID #30 grams 11/16/20 topical cream hydroxyzine HCl 25 mg tablet 25 mg PO TID PRN itching #60 tabs 12/09/20 atorvastatin 40 mg tablet 40 mg PO QHS #90 tabs 03/29/21 furosemide 20 mg tablet 20 mg PO DAILY #90 tabs 03/29/21 metformin 750 mg tablet,extended 750 mg PO QPM #90 tabs 04/13/21 release 24 hr nitroglycerin 0.4 mg sublingual 0.4 mg sublingual Q5M PRN chest 04/13/21 tablet pain #90 tabs omeprazole 40 mg capsule,delayed 40 mg PO DAILY #90 caps 04/13/21 release sertraline 100 mg tablet 100 mg PO DAILY #30 tabs 04/13/21 losartan 50 mg tablet 50 mg PO DAILY #90 tabs 05/29/21 cefpodoxime 100 mg tablet 100 mg PO BID #14 tabs 07/28/21 Medrol (Antwon) 4 mg tablets in a See Rx Instructions PO .COMPLEX 08/03/21 dose pack (methylprednisolone) #21 dose pk Allergies Allergy/AdvReac Type Severity Reaction Status Date / Time fluconazole [From Diflucan] Allergy Intermediate rash Verified 08/03/21 12:28 adhesive tape AdvReac rash Verified 08/03/21 12:28 amoxicillin [From Amoxil] AdvReac rash Verified 08/03/21 12:28 General Stated Complaint: RashLesion SUNITHA: 4 Review of Systems All systems reviewed & are unremarkable except as noted in HPI and below Constitutional Constitutional: Reports as per HPI, Denies chills and Denies fever(s) Eyes Eyes: Denies blurry vision ENT Ears, Nose, Mouth, and Throat: Denies dizziness, Denies sore throat and Denies throat swelling Cardiovascular Cardiovascular: Denies chest pain and Denies dyspnea Respiratory Respiratory: Denies cough and Denies dyspnea Gastrointestinal Gastrointestinal: Denies abdominal pain, Denies diarrhea and Denies vomiting Genitourinary Genitourinary: Denies hematuria and Denies dysuria Musculoskeletal Musculoskeletal: Denies back pain and Denies numbness Integumentary/Breasts Skin/Breast: Denies lesions and Reports rash Neurologic Neurologic: Denies dizziness, Denies localized weakness and Denies numbness Allergic/Immunologic Allergic/Immunologic: Denies throat swelling PFSH All Active Problems (Updated 08/03/21 @ 12:50 by Laura Coughlin DO) Rash (Acute) SOB (shortness of breath) (Acute) Ganglion cyst of dorsum of right wrist (Acute) Hypertension (Chronic) Chronic deep vein thrombosis (DVT) (Acute) Asthma (Chronic) Presence of IVC filter (Acute) Chronic anticoagulation (Acute) Osteoarthritis (Chronic) Obesity (Chronic) Hypercholesteremia (Acute) Anxiety and depression (Acute) Chronic diastolic (congestive) heart failure (Acute) CAD (coronary artery disease) (Chronic) stent placed 2013 Diabetes mellitus (Chronic) Medical History Benign essential hypertension Carpal tunnel syndrome of right wrist Degenerative joint disease of right hip DVT (deep venous thrombosis) Family hx of colon cancer mother GERD (gastroesophageal reflux disease) History of DVT (deep vein thrombosis) Hyperparathyroidism, primary parathyroid removed 2018 Other chronic pancreatitis Parathyroid adenoma removed 12/09/18 Postmenopausal Primary osteoarthritis of left knee Primary osteoarthritis of right knee Tobacco abuse quit in 2017 Surgical History History of cardiac catheterization History of colonic polyps History of total hysterectomy with bilateral salpingo-oophorectomy (BSO) Hx of tonsillectomy S/P balloon angioplasty of pulmonary artery branches Status post insertion of inferior vena caval filter Stented coronary artery Family History Father , [place] at age 62 Alcohol abuse Depression Heart disease Mother , age 84 Dementia Cancer colon Diabetes Heart disease Hypertension Sister No problems noted. Brother No problems noted. Brother , age 57 Alcohol abuse Depression Son Diabetes Hyperlipidemia Daughter Depression Hypertension Maternal Grandfather , age 90 Cancer Paternal Grandfather No problems noted. Maternal Grandmother No problems noted. Paternal Grandmother , age 75 No problems noted. Social History Smoking/Tobacco Use Status: Former Tobacco Use tobacco type: cigarettes Quit Date: 03/25/16 Tobacco: How many years used: 40 Second Hand Exposure: Yes Smoking risk assessment performed?: Yes Alcohol Intake: current Alcohol Intake frequency: a few times a month Alcohol type: beer Drug use: Never Substance use type: does not use Caregiver/Support person: No Household members: family Housing: house Communication Needs: None Do you need help understanding health information?: Rarely Pets and animals: Yes Pets and animals: cat(s) and dog(s) Sexually active: No Do you think of yourself as: straight/heterosexual Current gender identity: female What is your relationship status?: How often do you talk on the phone with friends or family?: three or more times per week How often do you get together with friends or relatives?: three or more times per week How often do you attend denominational or quaker services?: decline to answer Do you belong to any clubs or organized social groups?: no Panel score (0-1 are the most socially isolated patients): 1 Duration: 15-30 minutes/day Frequency: 3-4 times per week Amina/Anabaptism: No preference Special amina needs: No Seatbelt use: always Helmet use: Yes Helmet use: always Drive intox or ride w/intox truck driver instructor: No Do you feel safe at home: Yes Do you feel safe in your relationship?: Yes Exam Const General: cooperative, healthy appearing and no acute distress Orientation: alert, awake and oriented x3 HENMT Head: normal to inspection Ears: hearing grossly normal bilaterally, external ears normal and TM's normal bilaterally General nose exam: external nose normal Face and sinus: normal facial exam Mouth: oral mucosae normal Throat: posterior oropharynx normal Eyes General: appearance normal, both eyes and all related structures Neck Neck: normal visual inspection Resp Effort & Inspection: normal respiratory effort and able to speak in complete sentences Auscultation: clear to auscultation bilaterally Cardio Rate: regular rate Rhythm: regular rhythm Skin General skin exam: no rashes or lesions noted Neuro General: patient alert, patient awake and patient oriented x3 Motor: muscle tone normal throughout Extrem General: normal to inspection and full ROM Shoulder/upper arm images: 1. Erythematous maculopapular rash noted to lateral upper arm and posterior lateral forearm. No draining wounds. No abscesses noted. No vesicles noted. 2. Erythematous maculopapular rash noted to lateral upper arm and posterior lateral forearm. No draining wounds. No abscesses noted. No vesicles noted. Psych Appearance: grossly normal Affect: normal affect Course Vital Signs Vital signs: Temperature Source Skin 08/03/21 12:24 Pain Level 3 08/03/21 12:24
[2021-08-03 12:58] VITALS: BP 145/88; PULSE 68; RESP 18; TEMP 36.5; O2SAT 96
== END 2021-08-03 12:59 | disposition home or self-care (01) ==
PROVIDERS: Emergency Provider Physician Assistant; PCP Nurse Practitioner
DX: R21 Rash and other nonspecific skin eruption (principal)
CPT/HCPCS: 99283

== ENCOUNTER → 2022-03-23 09:00 | Outpatient (BNVA) | payer MEDICARE, SELFPAY | PROVIDERS: PCP Nurse Practitioner Family; Referring Provider Nurse Practitioner Family; Visit Provider Physician Assistant | DX: M17.11 Unilateral primary osteoarthritis, right knee (principal); M17.12 Unilateral primary osteoarthritis, left knee | CPT/HCPCS: 20610; J1040 ==

== ENCOUNTER 2022-03-31 12:55 | Outpatient (REF) | payer MEDICARE, SELFPAY | END 2022-03-31 12:56 | disposition home or self-care (01) | LOC: LBN 12:55 | PROVIDERS: PCP Nurse Practitioner Family; Visit Provider Nurse Practitioner Family | DX: N76.0 Acute vaginitis (principal) | CPT/HCPCS: 87480; 87510; 87660 ==

== ENCOUNTER 2022-05-25 01:45 | Outpatient (CLI) | payer MEDICARE, SELFPAY ==
[2022-05-25 13:31] LABS: HCT 45.3 % (36.0-46.0); HGB 14.5 g/dL (11.2-15.7); MCV 84 fL (80-95); MPV 9.8 fL (8.0-11.0); Platelet Count 288 10^3/uL (130-400); RBC 5.38 10^6/uL (3.93-5.22); RDW 15.1 % (11.7-14.6); WBC 5.67 10^3/uL (4.4-10.8)
[2022-05-25 14:16] LABS: ALT 33 U/L (14-59); AST 14 U/L (15-37); Albumin 3.7 g/dL (3.4-5.0); Alkaline Phosphatase 72 U/L (46-116); Anion Gap 8.5 mmol/L (3-11); BUN 13 mg/dL (7-18); Bilirubin, Total 0.4 mg/dL (0.2-1.0); CO2 29.5 mmol/L (21.0-32.0); CREATININE 0.8 mg/dL (0.55-1.02); Calcium 9.4 mg/dL (8.5-10.1); Calculated LDL 154 mg/dL (<100); Chloride 106 mmol/L (98-107); Cholesterol 244 mg/dL (<200); Estimated GFR 80.21 (mL/min/1.73m2); Glucose 109 mg/dL (74-106); HDL Cholesterol 60 mg/dL (40-60); Potassium 4.3 mmol/L (3.5-5.1); Sodium 144 mmol/L (136-145); TSH (W/Ref FT4) 0.89 uIU/mL (0.36-3.74); Total Protein 7.6 g/dL (6.4-8.2); Triglyceride 153 mg/dL (<150)
== END 2022-05-25 01:46 | disposition home or self-care (01) ==
LOC: LBO 01:45
PROVIDERS: PCP Nurse Practitioner Family; Visit Provider Nurse Practitioner Family
DX: I10 Essential (primary) hypertension (principal); E78.5 Hyperlipidemia, unspecified; F41.8 Other specified anxiety disorders; E11.9 Type 2 diabetes mellitus without complications; R26.89 Other abnormalities of gait and mobility; R25.3 Fasciculation; E66.8 Other obesity; J45.909 Unspecified asthma, uncomplicated
CPT/HCPCS: 36415; 80053; 80061; 85027; 84443

== ENCOUNTER 2022-06-15 01:32 | Outpatient (CLI) | payer MEDICARE, SELFPAY ==
--- NOTE | 2022-06-15 | DI.MRI_ITS ---
Exam(s) MR BRAIN WO/W EXAM: MR BRAIN WO/W CLINICAL HISTORY: MUSCLE TWITCHING,BALANCE PROBLEM,R25.3,R26.89,CONCERN FOR MS TECHNIQUE: Multiplanar multisequence MRI of the brain was performed. CONTRAST MATERIAL: IV Contrast: 20 mL of Dotarem contrast administered. COMPARISON: No exams were available for comparison FINDINGS: VENTRICLES AND EXTRA AXIAL SPACES: Normal in size and morphology for the patient's age. HEMORRHAGE: None. CEREBRAL PARENCHYMA: No focus of restricted diffusion to suggest acute infarct. No space-occupying le kylie identified. There are multiple hyperintense foci in the white matter on the FLAIR and T2 weighte d images. A few of the foci are see adjacent to the left lateral ventricle. None of these lesions s how enhancement following contrast administration. MIDLINE SHIFT: None. BRAINSTEM/CEREBELLUM: Normal. CALVARIUM: Normal. ENHANCEMENT: No suspicious enhancement identified. VISUALIZED PARANASAL SINUSES/MASTOIDS: There is a mucous retention cyst or polyp in the left maxillar y sinus. [place] OF MITTAL: Normal flow void. PITUITARY GLAND: Unremarkable. OTHER FINDINGS: IMPRESSION: Multiple foci of hyperintense signal in the white matter on the FLAIR and T2 weighted images. A few of the foci are seen adjacent to the left lateral ventricle. None of these lesions show enhancement. Differential considerations include small vessel ischemic disease but also demyelinating processes. Multiple sclerosis cannot be entirely excluded. DATA REPOSITORY:
[2022-06-15] MEDS: Normal Saline Flush 10 ML SYR IVP (14:36)
[2022-06-15] MEDS: Gadoterate meglumine 20 ML SYRINGE IVP (14:37)
== END 2022-06-15 01:52 ==
PROVIDERS: PCP Nurse Practitioner Family; Visit Provider Nurse Practitioner Family
DX: R26.89 Other abnormalities of gait and mobility (principal); R25.3 Fasciculation; R90.82 White matter disease, unspecified
CPT/HCPCS: 70553

== ENCOUNTER 2023-05-23 05:31 | Outpatient (CLI) | payer MEDICARE, SELFPAY ==
[2023-05-23 12:42] LABS: Abs Immature Grans 0.01 10^3/uL (0.0-0.06); Absolute Basophil Count 0.03 10^3/uL (0.0-0.2); Absolute Eosinophil Count 0.11 10^3/uL (0.0-0.7); Absolute Lymphocyte Count 1.38 10^3/uL (1.2-3.4); Absolute Monocyte Count 0.63 10^3/uL (0.1-0.8); Absolute Neutrophil Count 3.27 10^3/uL (1.2-6.7); Basophils % 0.6; HCT 43.9 % (36.0-46.0); HGB 14.2 g/dL (11.2-15.7); Immature Grans % 0.2; Lymphocytes % 25.4; MCH 27.3 pg (27.0-33.0); MCHC 32.3 % (32.0-36.0); MCV 84 fL (80-95); MPV 9.5 fL (8.0-11.0); Monocytes % 11.6; Neutrophils % 60.2; Platelet Count 260 10^3/uL (130-400); RDW 14.3 % (11.7-14.6); WBC 5.43 10^3/uL (4.4-10.8)
[2023-05-23 13:29] LABS: ALT 31 U/L (14-59); AST 12 U/L (15-37); Albumin 3.4 g/dL (3.4-5.0); Alkaline Phosphatase 66 U/L (46-116); Anion Gap 10.4 mmol/L (3-11); BUN 16 mg/dL (7-18); Bilirubin, Total 0.3 mg/dL (0.2-1.0); CO2 28.6 mmol/L (21.0-32.0); CREATININE 0.9 mg/dL (0.55-1.02); Calcium 9.3 mg/dL (8.5-10.1); Chloride 106 mmol/L (98-107); Cholesterol 278 mg/dL (<200); Glucose 120 mg/dL (74-106); HDL Cholesterol 51 mg/dL (40-60); Sodium 145 mmol/L (136-145); TSH (W/Ref FT4) 0.99 uIU/mL (0.36-3.74); Total Protein 7.6 g/dL (6.4-8.2); Triglyceride 416 mg/dL (<150)
[2023-05-23 13:39] LABS: LDL CHOLESTEROL 166 mg/dL (<100)
[2023-05-24 09:40] LABS: Hepatitis C Ab w Rflx HCV PCR Negative (Negative)
== END 2023-05-23 05:32 | disposition home or self-care (01) ==
PROVIDERS: PCP Nurse Practitioner Family; Visit Provider Nurse Practitioner Family
DX: I25.10 Atherosclerotic heart disease of native coronary artery without angina pectoris (principal)
CPT/HCPCS: 36415; 80053; 80061; 83721; 86803; 84443; 85025

== ENCOUNTER 2023-05-23 05:33 | Outpatient (CLI) | payer MEDICARE, SELFPAY ==
[2023-05-23] MEDS: Levalbuterol HFA 15 GM INH 4 PUFF IH (14:05)
[2023-05-23] MEDS: Inhaler, Assist Device 1 EACH MC (14:08)
--- NOTE | 2023-05-23 14:28 | W.PFT ---
Date of service: 05/23/23 Time of Service: 12:55 Pulmonary Function Test Result Indications: Dyspnea Interpretation Spirometry: There is no airflow limitation. No bronchodilator response. Lung Volumes: Normal lung volumes Diffusion Capacity: Normal diffusion. Airway Pressure: Normal airways resistance Impression Normal pulmonary function testing. Clinical Correlation therefore is recommended.
== END 2023-05-23 05:34 | disposition home or self-care (01) ==
LOC: RT 05:33
PROVIDERS: PCP Nurse Practitioner Family; Visit Provider Nurse Practitioner Family
DX: R06.00 Dyspnea, unspecified (principal)
CPT/HCPCS: 94060; 94726; 94729

== ENCOUNTER → 2023-06-04 00:58 | Outpatient (CLI) | payer MEDICARE, SELFPAY ==
--- NOTE | 2023-06-04 07:45 | DI.CTLCSR_ITS ---
Exam(s) CT CHEST LUNG CANCER SCREEN EXAM: CT CHEST LUNG CANCER SCREEN CLINICAL HISTORY: Screening for lung cancer,former smoker, z87.891. TECHNIQUE: Imaging Protocol: Low Dose Technique CONTRAST MATERIAL: None COMPARISON: No exams were available for comparison FINDINGS: CHEST: LUNGS: There is a 2-3 millimeter nodule in the right upper lobe (series 2/image 27). There are no ot her significant focal findings in the right lung. There are no significant focal findings in the opp osite-left lung. There are no pleural effusions on either side. No findings in the trachea and main stem bronchi.. MEDIASTINUM: There is no obvious hilar nor mediastinal adenopathy. CARDIAC: Heart size is normal. There is no pericardial effusion.Caliber of the thoracic aorta is wit hin normal limits. OTHER: OSSEOUS: No significant osseous lesions.However, there are findings throughout the thoracic spinal co lumn consistent with probable ankylosing spondylitis.. IMPRESSION: 1. Single small 2-3 millimeter nodule in the right upper lobe. 2. No other focal lung findings nor pleural effusions nor intrathoracic adenopathy. 3. Lung RADS Cat 2 - Benign Appearance / Behavior: Nodules with a very low likelihood of becoming a c linically active cancer due to size or lack of growth Lung-RADS 1.0 CATEGORIES: Category 0 - Prior chest CT exam(s) being located for comparison. Category 1 - Annual screening in 12 months. No nodules or definitely benign nodules. Category 2 - Annual screening in 12 months. Benign appearance. Nodules with low likelihood of becomin g active cancer. Category 3 - 6-month follow-up. Probably benign. Short-term follow-up suggested. Nodules with low lik elihood of becoming active cancer. Category 4A - 3-month follow-up and CT/PET if >8 mm in size. Suspicious finding. Findings which requi re additional testing. Category 4B - Findings which require additional testing and tissue sampling. Category 4X - Category 3 or 4 nodules with additional features or imaging findings that increases the suspicion of malignancy. Modifier S- Potentially clinically significant findings (non lung cancer) RADIATION DOSE DELIVERED: Total DLP DATA REPOSITORY: All CT scans at this facility are submitted to the National Radiology Data Registry (NRDR) Dose Index Registry (DIR) with the [employer] (ACR). RADIATION OPTIMIZATION: All CT scans at this facility use at least one of these dose optimization te jessica: automated exposure control; mA and/or kV adjustment per patient size (includes targeted exa ms where dose is matched to clinical indication); or iterative reconstruction.
--- NOTE | 2023-06-04 07:45 | DI.MRI_ITS ---
Exam(s) MR BRAIN WO EXAM: MR BRAIN WO CLINICAL HISTORY: f/u on abnormal brain MRI 2022,r90.89,hyperintense signal TECHNIQUE: Multiplanar multisequence MRI of the brain was performed. COMPARISON: MR MR BRAIN WO/W from 06/15/2022 FINDINGS: CEREBRAL PARENCHYMA: There is no evidence of intracranial hemorrhage, mass effect, or shift of midline structures. There are no extra-axial fluid collections. Ventricles are not enlarged or shifted. There is no significant focal signal abnormality in the cerebellar hemispheres nor within the lashawn, m idbrain, and thalami. Again noted are the previously described multiple FLAIR bright foci of signal abnormality in the yury ventricular white matter, unchanged from prior study 1 year ago. These are again not associated with hemorrhage, surrounding edema, nor restricted diffusion. There are no new additional foci of white matter signal abnormality. There is no significant focal signal abnormality evident on diffusion imaging to suggest acute ischem ic event. PITUITARY GLAND: No mass nor parasellar abnormality. No obvious abnormality in the cavernous sinuses. FLOW VOIDS: The expected flow void are noted. No evidence of obvious aneurysm nor obvious vascular ma lformation. PARANASAL SINUSES: Retention cyst in the floor of the left maxillary sinus is unchanged, measuring 1 cm size. Right maxillary sinus is clear as are the other paranasal sinuses. ORBITS: No obvious new findings. IMPRESSION: Findings are unchanged from prior MRI scan of 06/15/2022, 1 year ago. DATA REPOSITORY:
== END ==
PROVIDERS: PCP Nurse Practitioner Family; Visit Provider Nurse Practitioner Family
DX: Z87.891 Personal history of nicotine dependence (principal); R90.89 Other abnormal findings on diagnostic imaging of central nervous system
CPT/HCPCS: 71271; 70551

== ENCOUNTER → 2023-06-07 01:17 | Outpatient (CLI) | payer MEDICARE, SELFPAY ==
--- NOTE | 2023-06-07 08:00 | DI.MAMMO_ITS ---
Exam(s) MAMMO SCREENING EXAM: MAMMO SCREENING CLINICAL HISTORY: screening,Z12.39 TECHNIQUE: Mammograms were interpreted according to the usual protocol including computer analysis w DNA Guide CAD system, tomosynthesis and C-view imaging. COMPARISON: 2014 through 2021 FINDINGS: The breasts are composed of mainly fatty density , Breast Density category A. No suspicious masses or suspicious microcalcifications are seen. No skin thickening or abnormal axillary lymph nodes are seen. There has been no significant change from prior exams. IMPRESSION: BI-RADS Category 1, Negative mammogram Yearly screening mammography is recommended. Breast Density - Category A, fatty density. A negative radiographic report should not delay biopsy if a dominant or clinically suspicious mass is present. Up to ten percent of cancers are not identified on mammography. A negative report may reinforce clinical impression. Adenosis and dense breasts may obscure an underlying neoplasm. False positive reports average 6 to 10%. Patient will receive a letter notifying them of these results.
--- NOTE | 2023-06-07 14:33 | DI.US_ITS ---
APPROVED REPORT EXAM: Comprehensive 2D, Doppler, and color-flow Echocardiogram Patient Location: Out-Patient Radio Broadcaster: Shameka Boyer RDCS (AE) Indications: CAD, hx of heart failure, PMH smoking quit Other Information Study Quality: Fair. Technically limited study due to body habitus. Conclusion Technically difficult and suboptimal study Normal left ventricular size, wall thickness and systolic function. EF is 55% Right ventricle and both atria appear normal in size Within the limits of the study, no valvular disease is identified Wall motion Left Ventricle Low parasternal imaging. Technically limited views. The overall left ventricular systolic function ap pears normal. Echo findings are not consistent with a left ventricular outflow tract obstruction. The re is normal LV segmental wall motion. There is no ventricular septal defect visualized. LVEF is 55%. Right Ventricle Right ventricle is grossly normal in size. Right ventricular systolic function is grossly normal. Atria The left atrium size is normal. The right atrium size is normal. The interatrial septum is intact wi th no evidence for an atrial septal defect. Aortic Valve The aortic valve is normal in structure. Aortic valve is trileaflet. There is no aortic valvular sten osis. No aortic regurgitation is present. Mitral Valve The mitral valve is normal in structure. No evidence of mitral valve stenosis. Trace mitral regurgita tion. Tricuspid Valve The tricuspid valve is normal in structure. There is no tricuspid valve stenosis. Trace tricuspid reg urgitation. Unable to assess PA pressure. Pulmonic Valve Pulmonic valve is not well visualized. There is no pulmonic valvular stenosis. There is no pulmonic v alvular regurgitation. Great Vessels The aortic root is normal in size. The ascending aorta is normal in size. Aortic arch is normal in c aliber. IVC is normal in size and collapses >50% with inspiration. Pericardium There is no pericardial effusion. 2D Dimensions Ao Root d 2.81 cm F: 2.7 - 3.3 Ao Asc Diam d 2.89 cm F: 2.3 - 3.1 M-Mode TAPSE 2.57 cm (M/F) >1.7 Auto EF LV EDV A4C 116.8 mL LV EDV A2C 137.4 mL LV EDV BP 126.7 mL LV ESV A4C 53.3 mL LV ESV A2C 61.6 mL LV ESV BP 57.6 mL LVEF(%) A4C 54.3 % LVEF(%) A2C 55.2 % LVEF(%) BP 54.5 % LV SV A4C 63.4 ml LV SV A2C 75.8 ml LV SV BP 69.1 ml LV CO A4C 4.3 L/min LV CO A2C 5.4 L/min LV CO BP 4.8 L/min HR A4C 67.17 BPM HR A2C 71.15 BPM LV EDV Index (BP) LA Volume LA Length A4C 4.2 cm LA Length A2C 4.2 cm LA Area A4C s 12.41 cm2 LA Area A2C s 13.27 cm2 LA Vol A4C A-L 30.78 mL LA Vol A2C A-L 35.49 mL LA Vol Biplane A-L 33.2 mL LA Vol/BSA A4C A-L LA Vol/BSA A2C A-L LA Vol/BSA BP A-L 15.4 mL/m2 LA Vol A4C MOD 28.6 mL LA Vol A2C MOD 34.5 mL LA Vol BP MOD 31.3 mL RA Volume RA Area A4C 6.8 cm2 RA ESV A4C (A-L) 12.4mL RA Vol/BSA A4C A-L RA Length A4C 3.2 cm RA ESV A4C (MOD) 11.4mL LV Diastology MV E' medial 0.072 (>0.07 m/s) MV E Vmax 0.74 (0.4-1.3 m/s) MV E/E' MED 10.36 (<14) MV A Vmax 1.00 (0.4-1.3 m/s) MV E' lateral 0.106 (>0.1 m/s) E/A Ratio 0.7 MV E/E' LAT 7.00 (<14) MV E' Average 0.089 m/s MV E/E'(average) 8.36 Aortic Valve AoV Vmax 1.72 m/s LVOT Diam s 1.90 cm AoV Peak Grad 11.8 mmHg AoV VTI 0.363 m AoV Mean Dionicio. 1.18 m/s AoV Mean Grad 6.4 mmHg Mitral Valve MV DT 349 (160-240 msec) MV Vmax TIPS 1.05 m/s MV Mean Grad 2.1 (<2mmHg) MV VTI 0.370 m Pulmonary Valve PV Vmax 1.15 (0.5-1.5 m/s) RVOT Vmax 1.01 m/s PV Peak Grad 5.3 mmHg RVOT Peak Gr. 4.1 mmHg PV Mean Dionicio 0.84 m/s RVOT VTI 0.197 m PV Mean Grad 3.1 mmHg RVOT Mean Gr. 2.5 mmHg Tricuspid Valve RA Pressure 3.00 mmHg TV S' 0.17 m/s
--- NOTE | 2023-06-07 14:40 | DI.RAD_ITS ---
Exam(s) XR PELVIS AP EXAM: XR PELVIS AP CLINICAL HISTORY: ankylosing spondylitis on chest CT, eval SI joint, M45.9. TECHNIQUE: 2D digital imaging was performed. Single AP view. COMPARISON: CR XR HIP RT COMPLETE AP PELVIS from 04/13/2019 FINDINGS: BONES: No acute fracture is present. No bony destructive lesion is seen. JOINTS: No dislocation present. Mild bilateral hip joint space narrowing is present. Periarticular spurring. The SI joints appear intact. SOFT TISSUE: IVC filter. IMPRESSION: Moderate degenerative changes of both hips. DATA REPOSITORY: RADIATION DOSE DELIVERED:
== END ==
PROVIDERS: PCP Nurse Practitioner Family; Visit Provider Nurse Practitioner Family
DX: Z12.39 Encounter for other screening for malignant neoplasm of breast (principal); I25.10 Atherosclerotic heart disease of native coronary artery without angina pectoris; M45.9 Ankylosing spondylitis of unspecified sites in spine
CPT/HCPCS: 77063; 77067; 93306; 72170

== ENCOUNTER 2023-06-24 15:26 | Outpatient (REF) | payer MEDICARE, SELFPAY | END 2023-06-24 15:27 | disposition home or self-care (01) | LOC: LBN 15:26 | PROVIDERS: PCP Nurse Practitioner Family; Visit Provider Nurse Practitioner Family | DX: N76.0 Acute vaginitis (principal) | CPT/HCPCS: 87480; 87510; 87660 ==

== ENCOUNTER 2023-09-13 12:10 | Emergency (ER) | payer MEDICARE, SELFPAY ==
[2023-09-13] VITALS (11 sets, daily range): BP systolic 162–201; BP diastolic 59–102; PULSE 52–66; RESP 16–18; TEMP 36.6; O2SAT 94–97
--- NOTE | 2023-09-13 12:45 | RT.EKG_ITS ---
APPROVED REPORT Exam: Resting ECG Reason for Exam: L abd pain Patient Location: E HR:56 bpm ECG Measurements Heart Rate 56 AXIS WY 193 P 29 QRSd 90 QRS 29 QT 448 T 42 QTc 432 Conclusion Sinus bradycardia...rate< 60
--- NOTE | 2023-09-13 12:55 | W.ED.GENAD ---
Discharge Plan Discharge Details Chief Complaint: Abd Prob Primary Care Provider: Jennifer Landers ED Provider: Hayden Leal Home Meds and New Rx's Prescriptions: No Action cholecalciferol (vitamin D3) 1,250 mcg (50,000 unit) capsule 50,000 unit PO QMONTH Qty: 14 0RF sertraline 25 mg tablet 25 mg PO DAILY Qty: 90 3RF Rx Instructions: Take with 50 mg dose for a total of 75 mg daily. bupropion HCl 150 mg tablet extended release 24 hr 150 mg PO QAM Qty: 90 3RF Eliquis 2.5 mg tablet 2.5 mg PO BID Qty: 180 3RF atorvastatin 20 mg tablet 20 mg PO DAILY Qty: 90 3RF felodipine 5 mg tablet extended release 24 hr 5 mg PO DAILY Qty: 90 3RF nitroglycerin 0.4 mg tablet, sublingual 0.4 mg sublingual Q5-15M PRN (Reason: chest pain) Qty: 25 3RF Rx Instructions: 1 tablet every 5 minutes x 3 doses if needed for chest pain. Seek emergency services if not improving after first dose omeprazole 20 mg capsule,delayed release(DR/EC) 20 mg PO DAILY Qty: 90 3RF albuterol sulfate 90 mcg/actuation HFA aerosol inhaler 2 puff IH Q4H PRN (Reason: wheezing) Qty: 18 3RF losartan 25 mg tablet 25 mg PO DAILY Qty: 90 3RF Myrbetriq 25 mg tablet extended release 24 hr 25 mg PO DAILY Qty: 90 0RF aspirin [Adult Low Dose Aspirin] 81 mg tablet,delayed release (DR/EC) 81 mg PO DAILY Qty: 30 0RF sertraline 50 mg tablet 50 mg PO DAILY Qty: 90 3RF HPI General Mode of arrival: ambulatory. Date/Time Provider Initiated Documentation: 09/13/23 12:11. Limitations to Documentation: no limitations. Information obtained by: patient and family. History of Present Illness 67 year old F presents to the emergency department with the chief complaint of L sided abd pain, described as moderate, with intensity rated at 6. Quality is described as stabbing and aching, and is localized to the abdomen and left. Patient reports radiation to back (resolved). Patient started experiencing this week(s) (Intermittent for weeks, worse times few days) and it has been intermittent. No relieving factors improve symptom(s), No exacerbating factors reported . Patient notes nausea/vomiting (just nausea). Patient did receive the following treatments prior to arrival, none Related Data Home Medications Medication Instructions Recorded Confirmed aspirin 81 mg tablet,delayed 81 mg PO DAILY #30 tabs 07/03/19 09/13/23 release (Adult Low Dose Aspirin) cholecalciferol (vitamin D3) 1,250 50,000 unit PO QMONTH #14 caps 08/22/21 09/13/23 mcg (50,000 unit) capsule sertraline 25 mg tablet 25 mg PO DAILY #90 tabs 05/29/22 09/13/23 sertraline 50 mg tablet 50 mg PO DAILY #90 tabs 08/09/22 09/13/23 albuterol sulfate 90 mcg/actuation 2 puff inhalation Q4H PRN wheezing 05/13/23 09/13/23 aerosol inhaler #18 grams apixaban 2.5 mg tablet (Eliquis) 2.5 mg PO BID #180 tabs 05/13/23 09/13/23 atorvastatin 20 mg tablet 20 mg PO DAILY #90 tabs 05/13/23 09/13/23 bupropion HCl 150 mg 24 hr tablet, 150 mg PO QAM #90 tabs 05/13/23 09/13/23 extended release felodipine 5 mg tablet,extended 5 mg PO DAILY #90 tabs 05/13/23 09/13/23 release 24 hr losartan 25 mg tablet 25 mg PO DAILY #90 tabs 05/13/23 09/13/23 nitroglycerin 0.4 mg sublingual 0.4 mg sublingual Q5-15M PRN chest 05/13/23 09/13/23 tablet pain #25 tabs omeprazole 20 mg capsule,delayed 20 mg PO DAILY #90 caps 05/13/23 09/13/23 release mirabegron 25 mg tablet,extended 25 mg PO DAILY #90 tabs 05/27/23 09/13/23 release 24 hr (Myrbetriq) Previous Rx's Medication Instructions Recorded aspirin 81 mg tablet,delayed 81 mg PO DAILY #30 tabs 07/03/19 release (Adult Low Dose Aspirin) cholecalciferol (vitamin D3) 1,250 50,000 unit PO QMONTH #14 caps 08/22/21 mcg (50,000 unit) capsule sertraline 25 mg tablet 25 mg PO DAILY #90 tabs 05/29/22 sertraline 50 mg tablet 50 mg PO DAILY #90 tabs 08/09/22 albuterol sulfate 90 mcg/actuation 2 puff inhalation Q4H PRN wheezing 05/13/23 aerosol inhaler #18 grams apixaban 2.5 mg tablet (Eliquis) 2.5 mg PO BID #180 tabs 05/13/23 atorvastatin 20 mg tablet 20 mg PO DAILY #90 tabs 05/13/23 bupropion HCl 150 mg 24 hr tablet, 150 mg PO QAM #90 tabs 05/13/23 extended release felodipine 5 mg tablet,extended 5 mg PO DAILY #90 tabs 05/13/23 release 24 hr losartan 25 mg tablet 25 mg PO DAILY #90 tabs 05/13/23 nitroglycerin 0.4 mg sublingual 0.4 mg sublingual Q5-15M PRN chest 05/13/23 tablet pain #25 tabs omeprazole 20 mg capsule,delayed 20 mg PO DAILY #90 caps 05/13/23 release mirabegron 25 mg tablet,extended 25 mg PO DAILY #90 tabs 05/27/23 release 24 hr (Myrbetriq) Allergies Allergy/AdvReac Type Severity Reaction Status Date / Time fluconazole [From Diflucan] Allergy Intermediate rash Verified 09/13/23 12:18 adhesive tape AdvReac rash Verified 09/13/23 12:18 amoxicillin [From Amoxil] AdvReac rash Verified 09/13/23 12:18 cefpodoxime Allergy Intermediate Skin Rash Uncoded 09/13/23 12:18 General Stated Complaint: Abd Prob SUNITHA: 3 Review of Systems Constitutional Constitutional: Denies fever(s) and Denies weakness Cardiovascular Cardiovascular: Denies chest pain and Denies dyspnea Respiratory Respiratory: Denies cough and Denies dyspnea Gastrointestinal Gastrointestinal: Reports abdominal pain, Denies diarrhea, Reports nausea and Denies vomiting Genitourinary Genitourinary: Denies hematuria and Denies dysuria Musculoskeletal Musculoskeletal: Reports back pain Integumentary/Breasts Skin/Breast: Denies rash Neurologic Neurologic: Denies weakness Hematologic/Lymphatic Hematologic/Lymphatic: Reports easy bleeding and Reports easy bruising Exam Const General: cooperative, healthy appearing, comfortable and no acute distress Orientation: alert, awake and oriented x3 HENMT Head: normal to inspection, normocephalic and atraumatic Mouth: moist mucous membranes Eyes Conjunctivae: conjunctivae normal Neck Neck: normal visual inspection, full ROM, trachea midline and supple Resp Effort & Inspection: normal respiratory effort and able to speak in complete sentences Auscultation: clear to auscultation bilaterally Cardio Rate: regular rate Rhythm: regular rhythm GI Inspection: normal to inspection and obesity Palpation: soft, not firm, no guarding and tender in the LLQ Auscultation: normal bowel sounds Back/Spine/Pelvis Back: no CVA tenderness and No back tenderness Skin General skin exam: no rashes or lesions noted Neuro General: patient alert, patient awake, moves all extremities and no focal motor deficits Cognition: normal cognition Speech: speech normal Gait: normal gait Sensory Exam: no sensory deficits noted Extrem General: normal to inspection, full ROM, capillary refill normal, no pedal edema and no calf tenderness Psych Appearance: grossly normal Mental Status: mental status grossly normal Course Vital Signs Vital signs: Vital Signs Temperature 36.6 C 09/13/23 12:14 Pulse 66 09/13/23 12:14 Respiratory Rate 16 09/13/23 12:14 Blood Pressure 183/99 H 09/13/23 12:14 Pulse Oximetry 97 09/13/23 12:14 Temperature 36.6 C 09/13/23 12:14 Temperature Source Tympanic 09/13/23 12:14 Pulse 66 09/13/23 12:14 Respiratory Rate 16 09/13/23 12:14 Blood Pressure 183/99 H 09/13/23 12:14 Blood Pressure Position Sitting 09/13/23 12:14 Pulse Oximetry 97 09/13/23 12:14 Oxygen Delivery Method Room Air 09/13/23 12:14 Oxygen Flow Rate 0 09/13/23 12:14 Pain Level 8 09/13/23 12:14 Comment Has not tried any OTCs for pain 09/13/23 12:14 Medical Decision Making 67-year-old female with past medical history that includes splenic hemorrhage, bilateral lower extremity DVT, PE, hyperparathyroid, CAD, diabetes, hypertension, presence of IVC filter, chronic anticoagulation, presenting for a few week history of left lower quadrant pain, mild, intermittent. Progressively worsening such with mild nausea. Today seem to be slightly migrate to her left upper quadrant associate with some mild back pain. Back pain has resolved. Patient states this felt somewhat similar to her prior splenic hemorrhage so came to the ER for further evaluation. Given her complicated past medical history, will obtain IV access, routine laboratory values including a single troponin and EKG although low suspicion for cardiac etiology. Will also obtain a D-dimer. Laboratory values are grossly unremarkable except for a D-dimer elevated at 860 as well as trace of blood in her urine. Plan to obtain CTA of the chest although clinically low suspicion of PE. Blood in her urine certainly raises suspicion for a left-sided renal stone. Pain had been lower quadrant, possible diverticulitis. Discussed in length the clinical and laboratory findings with the patient. She is agreeable to this plan. Resting comfortably, using her phone without difficulty. Medical Records Medical records reviewed: Yes I reviewed the patient's medical records. ECG Data Attestation: I personally reviewed and interpreted this ECG (s) as follows: Interpretation: Sinus bradycardia, ventricular rate of 56, no STEMI. Please see official report by Dr. Adhikari Quality:SDOH Health Related Social Needs: No Data to Display [facility] All Active Problems CAD (coronary artery disease) (Chronic) S/p KEVIN to first diagonal branch of LAD 2011 Stented coronary artery (Chronic) Type 2 diabetes mellitus (Chronic) NAFLD (nonalcoholic fatty liver disease) (Chronic) Hypertension (Chronic) Hyperlipidemia (Chronic) History of venous thromboembolism (Chronic) 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 (Chronic ~2017) Chronic DVTs of bilateral common femoral veins, superficial femoral vein, and left popliteal vein Presence of IVC filter (Chronic) Chronic anticoagulation (Chronic) Major depressive disorder, recurrent (Chronic) Generalized anxiety disorder (Chronic) Former tobacco use (Chronic) Primary osteoarthritis of right knee (Chronic) Steroid injection: 03/23/2022; 05/25/2019 Primary osteoarthritis of left knee (Chronic) Steroid injection: 03/23/2022; 05/25/2019 Ganglion cyst of dorsum of right wrist (Chronic) 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) GERD (gastroesophageal reflux disease) (Chronic) Obesity, Class III, BMI 40-49.9 (morbid obesity) (Chronic) Urinary incontinence (Chronic) Overactive bladder (Chronic) Sigmoid diverticulosis (Chronic) Medical History Asthma Splenic hemorrhage (~2017) 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 Pulmonary embolism (~2016) DVT of lower extremity, bilateral (~2016) Hyperparathyroidism, primary parathyroid removed 2018 Surgical History S/P parathyroidectomy (11/2018) S/P coronary artery stent placement (~2011) KEVIN to first diagnonal branch Hx of tonsillectomy History of total hysterectomy with bilateral salpingo-oophorectomy (BSO) Family History Father , [place] at age 62 Alcohol abuse Depression Heart disease Mother , age 84 Dementia Diabetes Heart disease Hypertension Colon cancer Sister Heart disease Brother COPD (chronic obstructive pulmonary disease) Brother , age 57 Alcohol abuse Depression Son Diabetes Hyperlipidemia Daughter Depression Hypertension Maternal Grandfather , age 90 Cancer Paternal Grandfather No problems noted. Maternal Grandmother No problems noted. Paternal Grandmother , age 75 No problems noted. Social History Smoking/Tobacco Use Status: Former Tobacco Use tobacco type: cigarettes Quit Date: 03/25/17 Pack-years: 40 Tobacco: How many years used: 40 Second Hand Exposure: Yes Smoking risk assessment performed?: Yes Alcohol Intake: current Alcohol Intake frequency: holidays/special occasions only Alcohol type: beer Drug use: Never Substance use type: does not use Caregiver/Support person: No Household members: family Housing: house Communication Needs: None Do you need help understanding health information?: Often Pets and animals: Yes Pets and animals: cat(s) and dog(s) Sexually active: No Do you think of yourself as: straight/heterosexual Current gender identity: female What is your relationship status?: How often do you talk on the phone with friends or family?: three or more times per week How often do you get together with friends or relatives?: twice per week How often do you attend sabianist or druze services?: 1-3 times per year Do you belong to any clubs or organized social groups?: no Panel score (0-1 are the most socially isolated patients): 1 What type of physical activity do you participate in: walking Duration: 15-30 minutes/day Frequency: 3-4 times per week Amina/Denominational: No preference Special amina needs: No Seatbelt use: always Helmet use: Yes Helmet use: always Drive intox or ride w/intox furniture mover driver: No Do you feel safe at home: Yes Do you feel safe in your relationship?: Yes
[2023-09-13] MEDS: Normal Saline 1,000 ML 1000 ML IV (13:11)
[2023-09-13 13:21] LABS: Abs Immature Grans 0.02 10^3/uL (0.0-0.06); Absolute Basophil Count 0.04 10^3/uL (0.0-0.2); Absolute Lymphocyte Count 1.43 10^3/uL (1.2-3.4); Absolute Monocyte Count 0.64 10^3/uL (0.1-0.8); Absolute Neutrophil Count 3.28 10^3/uL (1.2-6.7); Basophils % 0.7 %; Eosinophils % 1.8 %; HCT 42.5 % (36.0-46.0); Immature Grans % 0.4 %; MCH 27.9 pg (27.0-33.0); MCHC 32.9 % (32.0-36.0); MCV 85 fL (80-95); MPV 10.1 fL (8.0-11.0); Monocytes % 11.6 %; Neutrophils % 59.5 %; Platelet Count 253 10^3/uL (130-400); RBC 5.02 10^6/uL (3.93-5.22); RDW 14.1 % (11.7-14.6); RDW-SD 43.3 fL; WBC 5.51 10^3/uL (4.4-10.8)
[2023-09-13 13:38] LABS: Bilirubin Negative (Negative); Blood Trace-intact (Negative); Clarity Clear (Clear); Glucose Negative (Negative); Ketones Negative (Negative); Leukocyte Esterase Negative (Negative); Nitrite Negative (Negative); Urobilinogen 0.2 mg/dL (Up to 0.2)
[2023-09-13 13:43] LABS: Bacteria Rare HPF (Negative); C & S Indicated? No; Casts Negative LPF (Negative); Crystals Negative HPF (Negative); Epithelial Cells Rare HPF (Negative); Mucus Negative (Negative); WBC 0-2 HPF (0-5)
[2023-09-13 14:12] LABS: D-Dimer 860 ng/mlFEU (<500)
[2023-09-13 14:45] LABS: ALT 34 U/L (14-59); AST 16 U/L (15-37); Albumin 3.5 g/dL (3.4-5.0); Alkaline Phosphatase 60 U/L (46-116); Anion Gap 9.6 mmol/L (3-11); BUN 10 mg/dL (7-18); Bilirubin, Total 0.53 mg/dL (0.2-1.0); CO2 28.4 mmol/L (21.0-32.0); CREATININE 0.8 mg/dL (0.55-1.02); Calcium 9.3 mg/dL (8.5-10.1); Chloride 106 mmol/L (98-107); Estimated GFR 79.71 (mL/min/1.73m2); Glucose 103 mg/dL (74-106); Lipase 24 U/L (16-77); Magnesium 1.9 mg/dL (1.8-2.4); Potassium 4.5 mmol/L (3.5-5.1); Sodium 144 mmol/L (136-145); Total Protein 7.5 g/dL (6.4-8.2); Troponin I < 50 ng/L (< or =60)
[2023-09-13] MEDS: Omnipaque 350 MG/ML 100 ML BTL IJ (15:27)
[2023-09-13] MEDS: Normal Saline - Diluent 50 ML VIAL IJ (15:28)
--- NOTE | 2023-09-13 15:29 | DI.CT_ITS ---
Exam(s) CT CHEST PE ABD PELVIS W EXAM: CT CHEST PE ABD PELVIS W CLINICAL HISTORY: L back pain, hx of dvt, ivc filter, anticoagulated. TECHNIQUE: Imaging Protocol: Axial computed tomography images with coronal and sagittal reformatted images were created and reviewed CONTRAST MATERIAL: Intravenous: Omnipaque 350 Contrast volume:100 ml Oral: no COMPARISON: CT CT CHEST PE CTA from 05/14/2019 FINDINGS: CHEST: Tracheobronchial tree: Patent. Pulmonary parenchyma: Not well evaluated due to expiratory changes and motion. No consolidation or do minant measurable mass. Pleura: No effusion or pneumothorax. Lymph nodes: Within normal limits. Aorta: Thoracic portion non-dilated. Heart: No pericardial effusion. Bones: Flowing syndesmophytes. No lytic or blastic lesions.No compression fractures. Soft tissues: Unremarkable. ABDOMEN and PELVIS: Liver: Enlarged. Normal density. No measurable mass. Gallbladder and biliary tract: No evidence of stones or wall thickening. No biliary dilatation. Pancreas: Normal density, no inflammatory process. Scattered calcifications. Spleen: Surgical clips left upper quadrant. Deformity of the spleen which could be secondary to previ ous trauma. Left upper quadrant varices. Kidneys: Normal size, contour and axis. No radiodense stones. No obstructive uropathy. No suspicious masses seen. Retroaortic left renal vein. Cyst stable mild left adrenal gland enlargement. Aorta: Abdominal portion non-dilated. Lymph nodes: Within normal limits. Soft tissues: Unremarkable. IVC filter. Bladder: Unremarkable. Bowel: Diverticulosis. No evidence of diverticulitis. No obstruction or bowel wall thickening. Peritoneal cavity: No ascites. No focal collection. No mesenteric inflammatory response. Bones: Degenerative changes and scoliosis noted in the spine. Degenerative changes of the hips. Reproductive organs: Post hysterectomy. IMPRESSION: No acute abnormality in the chest, abdomen or pelvis.. RADIATION DOSE DELIVERED: 2,223.27mGy.cm Total DLP DATA REPOSITORY: All CT scans at this facility are submitted to the National Radiology Data Registry (NRDR) Dose Index Registry (DIR) with the [employer] (A[employer]). RADIATION OPTIMIZATION: All CT scans at this facility use at least one of these dose optimization te chniques: automated exposure control; mA and/or kV adjustment per patient size (includes targeted exa ms where dose is matched to clinical indication); or iterative reconstruction.
--- NOTE | 2023-09-13 16:38 | W.EDPROG ---
Date of service: 09/13/23 Time of Service: 16:00 Medical Decision Making Handoff report received from caity Oneill. Please see his note for full history, physical exam, and lab interpretation. Radha is a 67-year-old female with history of T2DM, HTN, HLD, CAD, and history of spontaneous splenic hemorrhage who presented to the emergency department today for evaluation of left lower quadrant pain. She describes this as a dull aching pain, radiates to the back. This is accompanied by nausea, no vomiting. She denies any recent twisting/lifting or other known inciting incident. No recent illness, chest pain, shortness of breath, lightheadedness, change in bowel or bladder function. She did have a colonoscopy a year ago, says she had 20 polyps. She does have a PCP she can follow-up with. I did perform a brief physical exam with patient. She is alert and oriented, in no acute distress. Abdomen is soft, nondistended, mild tenderness to palpation of left side. Normoactive bowel sounds. Labs reassuring, aside from elevated D-dimer and trace of blood in urine. CTA of chest/abdomen/pelvis performed, no acute abnormalities noted. Unclear etiology of abdominal pain, workup today was reassuring. Advise follow-up with PCP for further evaluation. Reviewed red flags indicate need for return to emergency care. Of note, blood pressure was markedly elevated today in the emergency department. Radha reports she forgot to take her losartan last night. Advised her to take losartan as soon as she gets home today. Quality:[facility] Health Related Social Needs: No Data to Display Sign Out Sign Out Data: Sign Out Comment: Signed out to Donna Vargas MEDICAL EQUIPMENT TECHNICIAN with CTA of chest as well as CT of abdomen pelvis with contrast and final disposition. Workup thus far grossly unremarkable. Complicated past medical history. Originally concern for possible diverticulitis, PE, pancreatitis, renal stone, etc. Last updated by Hayden Leal PA at 09/13/23 16:04 Discharge Plan Disposition Patient Disposition: Home Condition: Stable Discharge Details Clinical Impression: Left sided abdominal pain Primary Care Provider: Jennifer Landers ED Provider: Donna José Home Meds and New Rx's Prescriptions: No Action cholecalciferol (vitamin D3) 1,250 mcg (50,000 unit) capsule 50,000 unit PO QMONTH Qty: 14 0RF sertraline 25 mg tablet 25 mg PO DAILY Qty: 90 3RF Rx Instructions: Take with 50 mg dose for a total of 75 mg daily. bupropion HCl 150 mg tablet extended release 24 hr 150 mg PO QAM Qty: 90 3RF Eliquis 2.5 mg tablet 2.5 mg PO BID Qty: 180 3RF atorvastatin 20 mg tablet 20 mg PO DAILY Qty: 90 3RF felodipine 5 mg tablet extended release 24 hr 5 mg PO DAILY Qty: 90 3RF nitroglycerin 0.4 mg tablet, sublingual 0.4 mg sublingual Q5-15M PRN (Reason: chest pain) Qty: 25 3RF Rx Instructions: 1 tablet every 5 minutes x 3 doses if needed for chest pain. Seek emergency services if not improving after first dose omeprazole 20 mg capsule,delayed release(DR/EC) 20 mg PO DAILY Qty: 90 3RF albuterol sulfate 90 mcg/actuation HFA aerosol inhaler 2 puff IH Q4H PRN (Reason: wheezing) Qty: 18 3RF losartan 25 mg tablet 25 mg PO DAILY Qty: 90 3RF Myrbetriq 25 mg tablet extended release 24 hr 25 mg PO DAILY Qty: 90 0RF aspirin [Adult Low Dose Aspirin] 81 mg tablet,delayed release (DR/EC) 81 mg PO DAILY Qty: 30 0RF sertraline 50 mg tablet 50 mg PO DAILY Qty: 90 3RF
--- NOTE | 2023-09-13 17:05 | NUR.NOTE ---
Nursing Note: PT needs PCP follow up in one to two weeks for left sided abdominal pain. Magda, ED
== END 2023-09-13 16:56 | disposition home or self-care (01) ==
PROVIDERS: Physician Assistant; Emergency Provider Nurse Practitioner Family; PCP Nurse Practitioner Family
DX: R10.32 Left lower quadrant pain (principal); R11.0 Nausea; I10 Essential (primary) hypertension; Z86.718 Personal history of other venous thrombosis and embolism
CPT/HCPCS: 00123; 36415; 71275; 74177; 80053; 83690; 93005; 96360; 99285; 81003; 81015; 83735; 84484; 85025; 85379; 93010; 99283; J3490

== ENCOUNTER 2024-05-14 16:23 | Outpatient (REF) | payer MEDICARE, SELFPAY ==
[2024-05-14 22:37] LABS: COMMENT (LAB VIEW ONLY) 31.21 mg/dL; Microalb ug/mg Crea 17.6 ug/mg Cr
== END 2024-05-14 16:24 | disposition home or self-care (01) ==
LOC: LBN 16:23
PROVIDERS: PCP Nurse Practitioner Family; Visit Provider Nurse Practitioner Family
DX: E11.9 Type 2 diabetes mellitus without complications (principal); I25.10 Atherosclerotic heart disease of native coronary artery without angina pectoris; Z87.891 Personal history of nicotine dependence; M17.12 Unilateral primary osteoarthritis, left knee; M16.11 Unilateral primary osteoarthritis, right hip; E66.01 Morbid (severe) obesity due to excess calories
CPT/HCPCS: 82043; 82570

== ENCOUNTER 2024-05-27 03:46 | Outpatient (CLI) | payer MEDICARE, SELFPAY ==
[2024-05-27 13:35] LABS: HCT 46.8 % (36.0-46.0); HGB 15.3 g/dL (11.2-15.7); MCH 28.2 pg (27.0-33.0); MCHC 32.7 % (32.0-36.0); MCV 86 fL (80-95); MPV 10.1 fL (8.0-11.0); Platelet Count 286 10^3/uL (130-400); RBC 5.43 10^6/uL (3.93-5.22); RDW 14.4 % (11.7-14.6); RDW-SD 45.4 fL; WBC 5.54 10^3/uL (4.4-10.8)
[2024-05-27 14:22] LABS: ALT 36 U/L (14-59); AST 15 U/L (15-37); Albumin 3.5 g/dL (3.4-5.0); Alkaline Phosphatase 71 U/L (46-116); BUN 15 mg/dL (7-18); CREATININE 1.1 mg/dL (0.55-1.02); Calcium 9.2 mg/dL (8.5-10.1); Calculated LDL 111 mg/dL (<100); Chloride 106 mmol/L (98-107); Cholesterol 214 mg/dL (<200); Estimated GFR 54.06 (mL/min/1.73m2); Glucose 207 mg/dL (74-106); HDL Cholesterol 62 mg/dL (>or=50); Potassium 3.7 mmol/L (3.5-5.1); Sodium 144 mmol/L (136-145); Total Protein 7.8 g/dL (6.4-8.2); Triglyceride 209 mg/dL (<150); Vitamin B12 634 pg/mL (193-986)
== END 2024-05-27 03:47 | disposition home or self-care (01) ==
PROVIDERS: PCP Nurse Practitioner Family; Visit Provider Nurse Practitioner Family
DX: I25.10 Atherosclerotic heart disease of native coronary artery without angina pectoris (principal); K76.0 Fatty (change of) liver, not elsewhere classified; E11.9 Type 2 diabetes mellitus without complications; Z86.718 Personal history of other venous thrombosis and embolism
CPT/HCPCS: 36415; 80053; 80061; 85027; 82607

== ENCOUNTER 2024-07-09 00:27 | Outpatient (CLI) | payer MEDICARE, SELFPAY ==
--- NOTE | 2024-07-09 07:45 | DI.DEXA_ITS ---
Exam(s) XR DEXA BONE DENSITY W/WO PRADIP EXAM: XR DEXA BONE DENSITY W/WO PRADIP CLINICAL HISTORY: osteoporosis screening in postmenopausal status,z78.0 TECHNIQUE: Bunkspeed C densitometer analysis of left hip, lumbar spine and left forearm. Lat eral survey image of the thoracic and lumbar spine. COMPARISON: CR XR HIP RT COMPLETE AP PELVIS from 04/13/[address] CHEST PE ABD PELVIS W from 09/13/[address] CHEST LUNG CANCER SCREEN from 07/09/2024 FINDINGS: Lateral view of the thoracic and lumbar spine shows no evidence of compression fractures. The upper thoracic vertebral bodies are not included on the exam. CT of the same day shows no evidence of comp ression fractures. Scoliosis and degenerative changes noted in the lumbar spine. This could falsely elevate the bone mineral density measurements. Bone mineral density measurements of the lumbar spine correspond to a total T-score of 2.1, in the n ormal range. Bone mineral density measurements of the left hip correspond to a total T-score of -0.1. The femora l neck T-score is -1.4, in the osteopenic range.. Theleft forearm bone mineral density measurements correspond to a T-score of the distal 3rd of -1.4, in the osteopenic range.. IMPRESSION: Osteopenia of the hip and forearm. Normal bone density of the spine.
--- NOTE | 2024-07-09 07:45 | DI.CTLCSR_ITS ---
Exam(s) CT CHEST LUNG CANCER SCREEN EXAM: CT CHEST LUNG CANCER SCREEN CLINICAL HISTORY: Screening for lung cancer,former tobacco use,z87.891 TECHNIQUE: Imaging Protocol: Axial computed tomography images with coronal and sagittal reformatted images were created and reviewed. Low dose screening protocol. COMPARISON: CT CT CHEST LUNG CANCER SCREEN from 06/04/[address] CHEST PE ABD PELVIS W from 09/13/2023 FINDINGS: Tracheobronchial tree: No bronchiectasis or mucus plugging. Mediastinum and Regla: No dominant adenopathy or fluid collection. Pulmonary parenchyma: No consolidation or dominant measurable mass. Mild emphysematous changes. No si gnificant interstitial changes. Lung Nodules: Stable 2-3 millimeter nodule right upper lobe. No new nodules. Pleura: No effusion. No pneumothorax. Heart: The heart is not dilated. Moderate coronary artery calcifications are seen. No pericardial eff usion. Aorta: Thoracic aorta non-dilated. Upper abdomen: Unremarkable. Left upper quadrant surgical clips. Bones: Flowing syndesmophytes along the thoracic spine. Soft Tissues: Unremarkable. IMPRESSION: No suspicious pulmonary nodules. Stable 2-3 millimeter nodule in the right upper lobe. Lung RADS Cat 2 - Benign Appearance / Behavior: Nodules with a very low likelihood of becoming a clin ically active cancer due to size or lack of growth Lung-RADS 1.0 CATEGORIES: Category 0 - Prior chest CT exam(s) being located for comparison. Category 1 - Annual screening in 12 months. No nodules or definitely benign nodules. Category 2 - Annual screening in 12 months. Benign appearance. Nodules with low likelihood of becomin g active cancer. Category 3 - 6-month follow-up. Probably benign. Short-term follow-up suggested. Nodules with low lik elihood of becoming active cancer. Category 4A - 3-month follow-up and CT/PET if >8 mm in size. Suspicious finding. Findings which requi re additional testing. Category 4B - Findings which require additional testing and tissue sampling. Category 4X - Category 3 or 4 nodules with additional features or imaging findings that increases the suspicion of malignancy. Modifier S- Potentially clinically significant findings (non lung cancer) RADIATION DOSE DELIVERED: !Error Total DLP DATA REPOSITORY: All CT scans at this facility are submitted to the National Radiology Data Registry (NRDR) Dose Index Registry (DIR) with the [employer] (ACR). RADIATION OPTIMIZATION: All CT scans at this facility use at least one of these dose optimization te chniques: automated exposure control; mA and/or kV adjustment per patient size (includes targeted exa ms where dose is matched to clinical indication); or iterative reconstruction.
--- NOTE | 2024-07-09 14:38 | DI.MAMMO_ITS ---
Exam(s) MAMMO SCREENING EXAM: MAMMO SCREENING CLINICAL HISTORY: screening,z12.39. TECHNIQUE: Bilateral full field digital CC and MLO mammographic images were obtained with 3D tomosyn thesis and utilizing computer aided detection (CAD). COMPARISON: Prior mammograms were reviewed. FINDINGS: There has been no significant change in the appearance and distribution of the fibroglandular tissue which is predominately fatty.. No CAD designations. There are no new spiculated masses nor malignant appearing microcalcification groups. There is no significant architectural distortion nor skin thickening-retraction. IMPRESSION: No radiographic evidence of malignancy. BI-RADS Category 1 - Negative Breast Density - Category A - Almost entirely fatty Breast density Category C or D implies that the patient has dense breast tissue. Dense breast tissue can make it harder to find cancer on a mammogram. Dense breast tissue is also associated with an incr eased risk of breast cancer. This information about the result of the mammogram report was provided to the patient to raise their awareness. Use this report when you speak with the patient about their risks for breast cancer, which includes their family history. At that time, you may recommend additional screening tests (Ultrasoun d or MRI) as these tests may add significant information. A negative radiographic report should not delay biopsy if a dominant or clinically suspicious mass is present. Up to ten percent of cancers are not identified on mammography. A negative report may reinforce clinical impression. Adenosis and dense breasts may obscure an underlying neoplasm. False positive reports average 6 to 10%. Patient will receive a letter notifying them of these results.
== END 2024-07-09 00:47 ==
PROVIDERS: PCP Nurse Practitioner Family; Visit Provider Nurse Practitioner Family
DX: Z12.31 Encounter for screening mammogram for malignant neoplasm of breast (principal); Z87.891 Personal history of nicotine dependence; Z78.0 Asymptomatic menopausal state; Z12.2 Encounter for screening for malignant neoplasm of respiratory organs; R91.1 Solitary pulmonary nodule; Z13.820 Encounter for screening for osteoporosis; M85.89 Other specified disorders of bone density and structure, multiple sites
CPT/HCPCS: 71271; 77063; 77067; 77080

== ENCOUNTER 2024-07-09 09:34 | Outpatient (CLI) | payer MEDICARE, SELFPAY ==
[2024-07-09 16:17] LABS: Hemoglobin A1C 6.8 % (<5.7)
[2024-07-09 16:29] LABS: BUN 11 mg/dL (7-18); Calcium 9.5 mg/dL (8.5-10.1); Chloride 106 mmol/L (98-107); Estimated GFR 60.61 (mL/min/1.73m2); Glucose 103 mg/dL (74-106); Potassium 4.1 mmol/L (3.5-5.1); Sodium 144 mmol/L (136-145)
== END 2024-07-09 09:35 | disposition home or self-care (01) ==
LOC: LBO 09:35
PROVIDERS: PCP Nurse Practitioner Family; Visit Provider Nurse Practitioner Family
DX: E11.9 Type 2 diabetes mellitus without complications (principal); N28.9 Disorder of kidney and ureter, unspecified
CPT/HCPCS: 36415; 80048; 83036

== ENCOUNTER 2025-02-04 15:05 | Observation (INO) | payer MEDICARE, SELFPAY ==
[2025-02-04 15:07] VITALS: BP 146/92; PULSE 64; RESP 18; TEMP 36.4; O2SAT 96
[2025-02-04 15:15] VITALS: BP 146/92; PULSE 64; RESP 18; TEMP 36.4; O2SAT 96
--- NOTE | 2025-02-04 15:30 | DI.CT_ITS ---
Exam(s) CT ABDOMEN PELVIS CTA EXAM: CT ABDOMEN PELVIS CTA CLINICAL HISTORY: severe ABD pain w wo palpation,hx spleen embol. TECHNIQUE: Imaging Protocol: Axial CT angiography was performed with multi- slice acquisition and multi-planar and/or 3D reconstructions. CONTRAST MATERIAL: Intravenous: Omnipaque 350 Contrast volume:100 ml Oral: no COMPARISON: CT CT CHEST PE ABD PELVIS W from 09/13/2023 FINDINGS: Vasculature: Aorta: No aneurysm. No dissection. No significant stenosis. Mild atherosclerotic calcifications. Iliac Arteries: Mild atherosclerotic calcifications. No evidence of stenosis. Common Femoral Arteries: No evidence of stenosis. Celiac Rainbow:No evidence of stenosis. SMA: No evidence of stenosis. WERO: Visible and patent. Renal Arteries: No evidence of stenosis. There is a single renal artery perfusing the right kidney. There are 2 left renal arteries. WERO: Patent. Venous structures: IVC filter. Retroaortic left renal vein. Mesenteric veins are not abnormally dilated. Lung bases:No acute findings. Liver: Normal size. Normal density. No measurable mass. Gallbladder and biliary tract: No evidence of calculi. No gallbladder wall thickening. No biliary dilation. Pancreas: Normal density, no acute inflammatory process. Scattered calcifications. Spleen: Stable chronic deformity. Metallic densities noted at the spine splenic hilum. Kidneys: Normal size, contour and axis. No obstructive uropathy. No masses seen. No evidence of calculi. Adrenal glands: Stable mild enlargement of the left adrenal gland. Bladder: No gross wall thickening. No evidence of calculi. No evidence of mass. Bowel: There is mild dilatation of small bowel in the lower abdomen with some areas wall thickening. The distal small bowel is decompressed. There is a transition point in the right lower quadrant. There is some fluid within the colon. No colonic wall thickening. Mild diverticulosis of the lower descending and sigmoid colon. No evidence of diverticulitis. Peritoneal cavity: No ascites. No focal collection. Mild stranding in the small bowel mesentery. Lymph nodes: Within normal limits. Reproductive: Hysterectomy. Soft Tissues:Unremarkable. Bones: No acute findings. Degenerative changes and scoliosis. Degenerative changes of both hips. IMPRESSION: Findings consistent with early or partial small bowel obstruction. No evidence of aneurysm or dissection. No evidence vascular occlusion or significant stenosis. No evidence of mesenteric ischemia or active GI bleed. Findings called to ER provider. RADIATION DOSE DELIVERED: Total DLP DATA REPOSITORY: All CT scans at this facility are submitted to the National Radiology Data Registry (NRDR) Dose Index Registry (DIR) with the [employer] (ACR). RADIATION OPTIMIZATION: All CT scans at this facility use at least one of these dose optimization techniques: automated exposure control; mA and/or kV adjustment per patient size (includes targeted exams where dose is matched to clinical indication); or iterative reconstruction.
--- NOTE | 2025-02-04 15:37 | ED.GENADUL_ITS ---
Discharge Plan Disposition Patient Disposition: Admit to [facility] Condition: Stable Discharge Details Clinical Impression: Small bowel obstruction Primary Care Provider: Jennifer Landers ED Provider: Satnam Edwards Home Meds and New Rx's Prescriptions: No Action albuterol sulfate 90 mcg/actuation HFA aerosol inhaler 2 puff IH Q4H PRN (Reason: wheezing) Qty: 18 3RF Eliquis 2.5 mg tablet 2.5 mg PO BID Qty: 180 3RF atorvastatin 20 mg tablet 20 mg PO DAILY Qty: 90 3RF bupropion HCl 150 mg tablet extended release 24 hr 150 mg PO QAM Qty: 90 3RF omeprazole 20 mg capsule,delayed release(DR/EC) 20 mg PO DAILY Qty: 90 3RF (DME) lancets [OneTouch UltraSoft 2 Lancet] 30 gauge misc See Rx Instructions .MEDSUPPLY Qty: 200 3RF Rx Instructions: Check blood sugar twice a day (DME) OneTouch Ultra Test Strip See Rx Instructions .MEDSUPPLY Qty: 200 3RF Rx Instructions: Check blood sugar twice a day (DME) blood-glucose meter [OneTouch Ultra2 Meter] Misc See Rx Instructions .Route Qty: 1 3RF Rx Instructions: Check blood sugar twice a day nitroglycerin 0.4 mg tablet, sublingual 0.4 mg sublingual Q5-15M PRN (Reason: chest pain) Qty: 25 3RF Rx Instructions: 1 tablet every 5 minutes x 3 doses if needed for chest pain. Seek emergency services if not improving after first dose sertraline 25 mg tablet 25 mg PO DAILY Qty: 90 3RF Rx Instructions: Take with 50 mg dose for a total of 75 mg daily. sertraline 50 mg tablet 50 mg PO DAILY Qty: 90 3RF glipizide 2.5 mg tablet 2.5 mg PO DAILY Qty: 90 3RF losartan 100 mg tablet 100 mg PO DAILY Qty: 90 3RF felodipine 10 mg tablet extended release 24 hr 10 mg PO DAILY Qty: 90 3RF aspirin [Adult Low Dose Aspirin] 81 mg tablet,delayed release (DR/EC) 81 mg PO DAILY Qty: 30 0RF Myrbetriq 25 mg tablet extended release 24 hr 25 mg PO DAILY Qty: 90 3RF HPI General Date/Time Provider Initiated Documentation: 02/04/25 15:20 . HPI Narrative: 69 year-old female presents to ED today by POV/ambulating with a chief complaint of abdominal pain, severe today, more moderate over the past 4 days, with one episoed of diarrhea earlier this morning. Quality described as fairly severe abdominal pain that is constant, no radiation to black stools, endorses some red stool this morning but did have pizza for dinner last night, endorses severe nausea without vomiting, denies chest pain, fever, shortness of breath, dysuria or urinary retention, cannot state whether they are passing gas or not at this time. Severity is described as 7-8/10. Palliating factors include nothing specific attempted. Provoking factors include nothing specific. Events leading up to the incident/Associated Symptoms: Patient has a history of splenic embolization as well as IVC filter. Patient is anticoagulated on Eliquis. Related Data Home Medications Medication Instructions Recorded Confirmed aspirin 81 mg tablet,delayed 81 mg PO DAILY #30 tabs 0 07/03/19 02/04/25 release (Adult Low Dose Aspirin) albuterol sulfate 90 mcg/actuation 2 puff inhalation Q 4H PRN wheezing 05/14/24 02/04/25 aerosol inhaler #18 grams apixaban 2.5 mg tablet (Eliquis) 2.5 mg PO BID #180 ta bs 05/14/24 02/04/25 atorvastatin 20 mg tablet 20 mg PO DAILY #90 tabs 04/2602/04/25 blood sugar diagnostic (OneTouch #200 ea 05/14/2411/24 Ultra Test strips) blood-glucose meter (OneTouch #1 ea 05/14/24 12/16/24 Ultra2 Meter) bupropion HCl 150 mg 24 hr tablet, 150 mg PO QAM #90 t abs 05/14/24 02/04/25 extended release lancets 30 gauge (OneTouch #200 ea 05/14/24 12/16/24 UltraSoft 2 Lancet) omeprazole 20 mg capsule,delayed 20 mg PO DAILY #90 ca ps 05/14/24 02/04/25 release mirabegron 25 mg tablet,extended 25 mg PO DAILY #90 ta bs 09/18/24 02/04/25 release 24 hr (Myrbetriq) glipizide 2.5 mg tablet 2.5 mg PO DAILY #90 tabs 02/04/25 losartan 100 mg tablet 100 mg PO DAILY #90 tabs 02/04/25 nitroglycerin 0.4 mg sublingual 0.4 mg sublingual Q5-1 5M PRN chest 11/13/24 02/04/25 tablet pain #25 tabs sertraline 25 mg tablet 25 mg PO DAILY #90 tabs 10/2402/04/25 sertraline 50 mg tablet 50 mg PO DAILY #90 tabs 10/2402/04/25 felodipine 10 mg tablet,extended 10 mg PO DAILY #90 ta bs 12/16/24 02/04/25 release 24 hr Previous Rx's Medication Instructions Recorded aspirin 81 mg tablet,delayed 81 mg PO DAILY #30 tabs 0 07/03/19 release (Adult Low Dose Aspirin) albuterol sulfate 90 mcg/actuation 2 puff inhalation Q 4H PRN wheezing 05/14/24 aerosol inhaler #18 grams apixaban 2.5 mg tablet (Eliquis) 2.5 mg PO BID #180 ta bs 05/14/24 atorvastatin 20 mg tablet 20 mg PO DAILY #90 tabs 04/26 blood sugar diagnostic (OneTouch #200 ea 05/14/24 Ultra Test strips) blood-glucose meter (OneTouch #1 ea 05/14/24 Ultra2 Meter) bupropion HCl 150 mg 24 hr tablet, 150 mg PO QAM #90 t abs 05/14/24 extended release lancets 30 gauge (OneTouch #200 ea 05/14/24 UltraSoft 2 Lancet) omeprazole 20 mg capsule,delayed 20 mg PO DAILY #90 ca ps 05/14/24 release mirabegron 25 mg tablet,extended 25 mg PO DAILY #90 ta bs 09/18/24 release 24 hr (Myrbetriq) glipizide 2.5 mg tablet 2.5 mg PO DAILY #90 tabs losartan 100 mg tablet 100 mg PO DAILY #90 tabs nitroglycerin 0.4 mg sublingual 0.4 mg sublingual Q5-1 5M PRN chest 11/13/24 tablet pain #25 tabs sertraline 25 mg tablet 25 mg PO DAILY #90 tabs 10/24 05/19 sertraline 50 mg tablet 50 mg PO DAILY #90 tabs 10/24 05/19 felodipine 10 mg tablet,extended 10 mg PO DAILY #90 ta bs 12/16/24 release 24 hr Allergies Allergy/AdvReac Type Severity Reaction Status Date / Time fluconazole (From Diflucan) Allergy Intermediate rash Verified 02/04/25 15:14 cefpodoxime Allergy Rash Verified 02/04/25 15:14 metformin AdvReac Intermediate Intolerable Verified 02/04/25 15:14 diarrhea adhesive tape AdvReac rash Verified 02/04/25 15:14 amoxicillin (From Amoxil) AdvReac rash Verified 02/04/25 15:14 General Stated Complaint: Abd Prob SUNITHA: 3 Review of Systems All systems reviewed & are unremarkable except as noted in HPI and below Exam Narrative Exam Narrative: GENERAL APPEARANCE: Obesity, non-toxic, awake and alert, atraumatic, mild acute distress. SKIN: Warm, pink, dry, intact, without rashes/lesions/ulcerations. HEAD: Normocephalic, atraumatic, normal hair distribution for gender/age. EYES: Normal conjunctiva, no exudates on lids/lashes. ENT: Nares patent, no circumoral cyanosis, no facial swelling NECK: Supple, trachea midline, painless cervical ROM. LUNGS/CHEST: Lungs CTA bilaterally- no rhonchi/rales/wheezes diffusely, non- labored respirations, normal A/P diameter, symmetrical expansion, no chest wall deformity HEART (CV/PV): Regular rate and rhythm without murmur, no peripheral edema, no JVD. ABDOMEN: Hypoactive bowel sounds, soft, non-distended, no guarding, diffuse tenderness without much change per patient with palpation and without. MSK: Normal ROM, no swelling/deformity to bilateral UEs or LEs, moving all extremities without weakness, no cyanosis, spine midline without tenderness, normal curvature. NEURO: Mental Status AAOx4 - alert to person, place, time, events No facial droop, no forehead involvement. Motor: No focal weakness - strength 5/5 in bilateral UEs and LEs, proximal and distal, symmetric. Sensory: sensation intact to light touch globally. Gait normal: patient ambulated without ataxia into ED room. PSYCH: euthymic, cooperative, pleasant, appropriate speech Course Vital Signs Vital signs: Vital Signs Temperature 36.4 C L 02/04/25 15:07 Pulse 64 02/04/25 15:07 Respiratory Rate 18 02/04/25 15:07 Blood Pressure 146/92 H 02/04/25 15:07 Pulse Oximetry 96 02/04/25 15:07 Temperature 36.4 C L 02/04/25 15:15 Temperature Source Core 02/04/25 15:15 Pulse 64 02/04/25 15:15 Respiratory Rate 18 02/04/25 15:15 Blood Pressure 146/92 H 02/04/25 15:15 Blood Pressure Position Sitting 02/04/25 15:15 Pulse Oximetry 96 02/04/25 15:15 Oxygen Delivery Method Room Air 02/04/25 15:15 Oxygen Flow Rate 0 02/04/25 15:15 Pain Level 8 02/04/25 15:15 Comment not taking otc relief did not take morning meds except for glipizide 02/04/25 15:15 Medical Decision Making This dictation utilizes [id number] dictation software and may contain unedited grammatical errors. 69 year-old female presents to ED today by POV/ambulating with a chief complaint of abdominal pain, severe today, more moderate over the past 4 days, with one episoed of diarrhea earlier this morning. Quality described as fairly severe abdominal pain that is constant, no radiation to black stools, endorses some red stool this morning but did have pizza for dinner last night, endorses severe nausea without vomiting, denies chest pain, fever, shortness of breath, dysuria or urinary retention, cannot state whether they are passing gas or not at this time. Severity is described as 7-8/10. Palliating factors include nothing specific attempted. Provoking factors include nothing specific. Events leading up to the incident/Associated Symptoms: Patient has a history of splenic embolization as well as IVC filter. Patients' medical history: Asthma, splenic hemorrhage, history of PE and DVTs, history of coronary artery stents, T2DM, NAFLD the, hypertension, hyperlipidemia, former tobacco use, obesity, GERD, sigmoid diverticulosis. Family and social history: Noncontributory. Pertinent exam findings / vital signs include diffuse abdominal tenderness that does not change significantly with palpation though does hurt somewhat more per the patient, no CVA tenderness to percussion, benign cardiopulmonary exam, nontoxic and afebrile, nontachycardic. Differential / pathologies of concern include mesenteric ischemia, clot pathology of abdominal organ, enteritis, diverticulitis, SBO, less likely cholecystitis or appendicitis. Diagnostic studies of: - CBC, CMP, lactate, magnesium, lipase, CTA of the abdomen/pelvis. - CBC unremarkable - Lactate 1.6 - CMP is unremarkable - Lipase negative - CTA of the abdomen and pelvis shows early or possible partial SBO and no other pathology Interventions of: - 1 g IV Tylenol, IVF NS at 150 mL/hr. - Consult with surgery Dr. Barrera @ 1720, recommend admit to medicine for small bowel follow-through study XR with PO contrast prior around 0600. npo except ice chips, and IVF with pain control PRN. Dr Jennings accepted at 1730. ED Course/Assessment/Plan: 69-year-old female presents with a few days of mild abdominal pain becoming much worse after a very small amount of liquid stool and redness past this morning, it is not necessarily worse with palpation but it is constant, she has significant comorbidities with a past hysterectomy, type 2 diabetes mellitus, history of DVT on low-dose 2.5 mg twice daily Eliquis, coronary stents without history of [place] and known diverticulosis as well as T2DM, she is not vomiting, her CT shows an earlier partial small bowel obstruction but no large distended loops of bowel, she will be admitted with n.p.o. except ice chips, p.o. contrast x-ray follow-up study at 0600. Surgical consult to follow, patient has not required any significant pain medicine beyond IV Tylenol here in the emergency department Disposition of Small Bowel Obstruction. Patient verbalized understanding of the plan and return to ED criteria and engaged in shared decision making. Medical Records Medical records reviewed: Yes I reviewed the patient's medical records. Imaging Data Radiologic Study: Attestation: I personally reviewed and interpreted this imaging study as follows: Imaging: CT Scan Radiologist's impression: EXAM: CT ABDOMEN PELVIS CTA CLINICAL HISTORY: severe ABD pain w wo palpation,hx spleen embol. TECHNIQUE: Imaging Protocol: Axial CT angiography was performed with multi- slice acquisition and multi-planar and/or 3D reconstructions. CONTRAST MATERIAL: Intravenous: Omnipaque 350 Contrast volume:100 ml Oral: no COMPARISON: CT CT CHEST PE ABD PELVIS W from 09/13/2023 FINDINGS: Vasculature: Aorta: No aneurysm. No dissection. No significant stenosis. Mild atherosclerotic calcifications. Iliac Arteries: Mild atherosclerotic calcifications. No evidence of stenosis. Common Femoral Arteries: No evidence of stenosis. Celiac [place]:No evidence of stenosis. SMA: No evidence of stenosis. WERO: Visible and patent. Renal Arteries: No evidence of stenosis. There is a single renal artery perfusing the right kidney. There are 2 left renal arteries. WERO: Patent. Venous structures: IVC filter. Retroaortic left renal vein. Mesenteric veins are not abnormally dilated. Lung bases:No acute findings. Liver: Normal size. Normal density. No measurable mass. Gallbladder and biliary tract: No evidence of calculi. No gallbladder wall thickening. No biliary dilation. Pancreas: Normal density, no acute inflammatory process. Scattered calcifications. Spleen: Stable chronic deformity. Metallic densities noted at the spine splenic hilum. Kidneys: Normal size, contour and axis. No obstructive uropathy. No masses seen. No evidence of calculi. Adrenal glands: Stable mild enlargement of the left adrenal gland. Bladder: No gross wall thickening. No evidence of calculi. No evidence of mass. Bowel: There is mild dilatation of small bowel in the lower abdomen with some areas wall thickening. The distal small bowel is decompressed. There is a transition point in the right lower quadrant. There is some fluid within the colon. No colonic wall thickening. Mild diverticulosis of the lower descending and sigmoid colon. No evidence of diverticulitis. Peritoneal cavity: No ascites. No focal collection. Mild stranding in the small bowel mesentery. Lymph nodes: Within normal limits. Reproductive: Hysterectomy. Soft Tissues:Unremarkable. Bones: No acute findings. Degenerative changes and scoliosis. Degenerative changes of both hips. IMPRESSION: Findings consistent with early or partial small bowel obstruction. No evidence of aneurysm or dissection. No evidence vascular occlusion or significant stenosis. No evidence of mesenteric ischemia or active GI bleed. Findings called to ER provider. Lab Data Lab results reviewed: Yes I reviewed the patient's lab results. Labs: Laboratory Tests Range/Units 02/04/25 15:57 WBC (4.4-10.8) 10^3/uL 8.16 RBC (3.93-5.22) 10^6/uL 5.70 H Hgb (11.2-15.7) g/dL 15.7 Hct (36.0-46.0) % 47.9 H MCV (80-95) fL 84 MCH (27.0-33.0) pg 27.5 MCHC (32.0-36.0) % 32.8 RDW (11.7-14.6) % 14.0 Plt Count (130-400) 10^3/uL 295 MPV (8.0-11.0) fL 9.9 Immature Gran % % 0.2 Neutrophils % % 83.5 Lymphocytes % % 8.8 Monocytes % % 6.4 Eosinophils % % 0.7 Basophils % % 0.4 Nucleated RBC % (0.0-0.3) % 0.0 Absolute Neutrophils (1.2-6.7) 10^3/uL 6.81 H Absolute Lymphocytes (1.2-3.4) 10^3/uL 0.72 L Absolute Monocytes (0.1-0.8) 10^3/uL 0.52 Absolute Eosinophils (0.0-0.7) 10^3/uL 0.06 Absolute Basophils (0.0-0.2) 10^3/uL 0.03 VBG Lactate (<or=2.0) mmol/L 1.6 Sodium (136-145) mmol/L 140 Potassium (3.5-5.1) mmol/L 4.2 Chloride (98-107) mmol/L 104 Carbon Dioxide (20.0-31.0) mmol/L 24.7 Anion Gap (3-11) mmol/L 11.3 H BUN (9-23) mg/dL 14 Creatinine (0.55-1.02) mg/dL 0.7 Est GFR (CKD-EPI 2020) (mL/min/1.73m2) 85.23 Glucose (74-106) mg/dL 142 H Calcium (8.3-10.6) mg/dL 9.6 Magnesium (1.6-2.6) mg/dL 2.0 Total Bilirubin (0.2-1.2) mg/dL 0.60 AST (<34) U/L 23 ALT (10-49) U/L 29 Alkaline Phosphatase (46-116) U/L 70 Total Protein (5.7-8.2) g/dL 8.0 Albumin (3.4-5.0) g/dL 4.7 Lipase (<53) U/L 25 Quality:[facility] Health Related Social Needs: Health related social needs risk of homeless house/eco n circumstance daily activities lonely/isolated PFSH All Active Problems (Updated 02/04/25 @ 17:24 by MARVIN Mike) Small bowel obstruction (Acute) CAD (coronary artery disease) (Chronic) S/p KEVIN to first diagonal branch of LAD 2011 Stented coronary artery (Chronic) Type 2 diabetes mellitus (Chronic) NAFLD (nonalcoholic fatty liver disease) (Chronic) Hypertension (Chronic) Hyperlipidemia (Chronic) History of venous thromboembolism (Chronic) 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 (Chronic ~2017) Chronic DVTs of bilateral common femoral veins, superficial femoral vein, and left popliteal vein Presence of IVC filter (Chronic) Chronic anticoagulation (Chronic) Major depressive disorder, recurrent (Chronic) Generalized anxiety disorder (Chronic) Former tobacco use (Chronic) Annual LDCT Primary osteoarthritis of right knee (Chronic) Steroid injection: 03/23/2022; 05/25/2019 Primary osteoarthritis of left knee (Chronic) Steroid injection: 03/23/2022; 05/25/2019 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) GERD (gastroesophageal reflux disease) (Chronic) Obesity, Class III, BMI 40-49.9 (morbid obesity) (Chronic) Urinary incontinence (Chronic) Overactive bladder (Chronic) Sigmoid diverticulosis (Chronic) Nail dystrophy (Acute) Medical History Asthma Splenic hemorrhage (~2017) 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 Pulmonary embolism (~2016) DVT of lower extremity, bilateral (~2016) Hyperparathyroidism, primary parathyroid removed 2018 Surgical History S/P parathyroidectomy (11/2018) S/P coronary artery stent placement (~2011) KEVIN to first diagnonal branch Hx of tonsillectomy History of total hysterectomy with bilateral salpingo-oophorectomy (BSO) Family History Father , [place] at age 62 Alcohol abuse Depression Heart disease Mother , age 84 Dementia Diabetes Heart disease Hypertension Colon cancer Sister Heart disease Brother COPD (chronic obstructive pulmonary disease) Brother , age 57 Alcohol abuse Depression Son Diabetes Hyperlipidemia Daughter Depression Hypertension Maternal Grandfather , age 90 Cancer Paternal Grandfather No problems noted. Maternal Grandmother No problems noted. Paternal Grandmother , age 75 No problems noted. Social History Smoking/Tobacco Use Status: Former Tobacco Use tobacco type: cigarettes Quit Date: 03/25/17 Pack-years: 40 Tobacco: How many years used: 40 Second Hand Exposure: Yes Smoking risk assessment performed?: Yes Alcohol Intake: current Alcohol Intake frequency: holidays/special occasions only Alcohol type: beer Drug use: Never Substance use type: does not use Caregiver/Support person: No Household members: family Housing: house Communication Needs: None Do you need help understanding health information?: Often Pets and animals: Yes Pets and animals: cat(s) and dog(s) Sexually active: No Do you think of yourself as: straight/heterosexual Current gender identity: female What is your relationship status?: How often do you talk on the phone with friends or family?: three or more times per week How often do you get together with friends or relatives?: twice per week How often do you attend anabaptist or scientologist services?: 1-3 times per year Do you belong to any clubs or organized social groups?: no Panel score (0-1 are the most socially isolated patients): 1 What type of physical activity do you participate in: walking Duration: 15-30 minutes/day Frequency: 3-4 times per week Amina/Holiness: No preference Special amina needs: No Seatbelt use: always Helmet use: Yes Helmet use: always Drive intox or ride w/intox power screwdriver operator: No Do you feel safe at home: Yes Do you feel safe in your relationship?: Yes
[2025-02-04] MEDS: ACETAMINOPHEN 1,000 MG/100 ML BAG 400 MG IVPB (15:59)
[2025-02-04] MEDS: Normal Saline 1,000 ML 150 ML IV (15:59)
[2025-02-04 16:10] LABS: Abs Immature Grans 0.02 10^3/uL (0.0-0.06); HCT 47.9 % (36.0-46.0); HGB 15.7 g/dL (11.2-15.7); Immature Grans % 0.2 %; MCH 27.5 pg (27.0-33.0); MCHC 32.8 % (32.0-36.0); MCV 84 fL (80-95); MPV 9.9 fL (8.0-11.0); Platelet Count 295 10^3/uL (130-400); RBC 5.70 10^6/uL (3.93-5.22); RDW 14.0 % (11.7-14.6); RDW-SD 42.9 fL; WBC 8.16 10^3/uL (4.4-10.8)
[2025-02-04] MEDS: Normal Saline - Diluent 50 ML VIAL IJ (16:21)
[2025-02-04] MEDS: Normal Saline Flush 10 ML SYR IVP ×3 (16:21→22:37)
[2025-02-04] MEDS: Omnipaque 350 MG/ML 100 ML BTL IJ (16:22)
[2025-02-04 16:44] LABS: Lipase 25 U/L (<53)
[2025-02-04 16:45] LABS: Magnesium 2.0 mg/dL (1.6-2.6)
[2025-02-04 16:46] LABS: ALT 29 U/L (10-49); AST 23 U/L (<34); Albumin 4.7 g/dL (3.4-5.0); Alkaline Phosphatase 70 U/L (46-116); Anion Gap 11.3 mmol/L (3-11); BUN 14 mg/dL (9-23); Bilirubin, Total 0.60 mg/dL (0.2-1.2); CO2 24.7 mmol/L (20.0-31.0); Calcium 9.6 mg/dL (8.3-10.6); Chloride 104 mmol/L (98-107); Glucose 142 mg/dL (74-106); Potassium 4.2 mmol/L (3.5-5.1); Sodium 140 mmol/L (136-145); Total Protein 8.0 g/dL (5.7-8.2)
--- NOTE | 2025-02-04 18:22 | W.PM.HP.N ---
Date of service: 02/04/25 Time of Service: 18:25 Assessment and Plan Assessment and plan (1) Small bowel obstruction: Status: Acute Assessment and plan: As per HPI, imaging and symptomatology: Partial or early small bowel obstruction N.p.o. except ice chips, IVF, follow-up x-ray in the morning Surgical consult: Discussed with and no oral contrast given at this time and no NG tube unless the patient develops ongoing bilious emesis (2) CAD (coronary artery disease): Status: Chronic Assessment and plan: Continue home medicine regimen (3) Type 2 diabetes mellitus: Status: Chronic Assessment and plan: Hold glipizide POCT glucose monitoring Q6 while NPO with SSI coverage (4) Hypertension: Status: Chronic Assessment and plan: Continue home medicine regimen (5) Hyperlipidemia: Status: Chronic Assessment and plan: Continue home medicine regimen (6) Major depressive disorder, recurrent: Status: Chronic Assessment and plan: Continue home meds regimen (7) Generalized anxiety disorder: Status: Chronic Assessment and plan: Continue home medicine regimen (8) GERD (gastroesophageal reflux disease): Status: Chronic Assessment and plan: Oral PPI transition to IV PPI (9) Splenic hemorrhage: Assessment and plan: History of, had embolization done and appears stable (10) Obesity, Class III, BMI 40-49.9 (morbid obesity): Status: Chronic Assessment and plan: As per BMI Consider discussing GLP-1, nutrition consultation and PCP f/u (11) Overactive bladder: Status: Chronic Assessment and plan: Continue home medicine regimen (12) Chronic anticoagulation: Status: Chronic Assessment and plan: For repeated DVT - ongoing home dose eliquis (13) Discharge planning issues: Status: Acute Assessment and plan: discharge 24-48 hours at best Discussed with Dr. Jennings History of Present Illness History of Present Illness Chief Complaint: Abdominal pain Narrative: This 69 year-old female morbidly obese patient with a PMHx of HFpEF, MASLD, asthma , remote 40 year of smoking history, HTN, CAD, DM II,HLD, DVT on Eliquis splenic hemorrhage and splenic embolization as well as IVC filter embolization of presented to ED today by POV/ambulating with a chief complaint of diffuse non-radiating abdominal pain X2 days worsening today, ongoing diarrhea s/p meals. The ED work-up was positive fro early or partial SBO. Surgery was consulted with recommendation for admission to the hospitalist services, NPO except ice chips, no NGT, follow-up ABD XR at 06AM, no gastrografin indicated at this time as per discussion with Dr. Barrera. Blood work was without actionable findings. The patient reported: dizziness, nausea, abdominal pain , diarrhea w/o hematochezia or melena The patient denied : Fevers, vomiting, chest pain , SOB, hematochezia, melena or dysduria, denies asthma hx, NM Full code status confirmed Review of Systems All systems reviewed & are unremarkable except as noted in HPI and below PFSH All Active Problems (Updated 02/04/25 @ 20:02 by Amna Christensen APRN) Discharge planning issues (Acute) Small bowel obstruction (Acute) CAD (coronary artery disease) (Chronic) S/p KEVIN to first diagonal branch of LAD 2011 Stented coronary artery (Chronic) Type 2 diabetes mellitus (Chronic) NAFLD (nonalcoholic fatty liver disease) (Chronic) Hypertension (Chronic) Hyperlipidemia (Chronic) History of venous thromboembolism (Chronic) 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 (Chronic ~2016) Chronic DVTs of bilateral common femoral veins, superficial femoral vein, and left popliteal vein Presence of IVC filter (Chronic) Chronic anticoagulation (Chronic) Major depressive disorder, recurrent (Chronic) Generalized anxiety disorder (Chronic) Former tobacco use (Chronic) Annual LDCT Primary osteoarthritis of right knee (Chronic) Steroid injection: 03/23/2022; 05/25/2019 Primary osteoarthritis of left knee (Chronic) Steroid injection: 03/23/2022; 05/25/2019 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) GERD (gastroesophageal reflux disease) (Chronic) Obesity, Class III, BMI 40-49.9 (morbid obesity) (Chronic) Urinary incontinence (Chronic) Overactive bladder (Chronic) Sigmoid diverticulosis (Chronic) Nail dystrophy (Acute) Medical History Asthma Splenic hemorrhage (~2017) 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 Pulmonary embolism (~2016) DVT of lower extremity, bilateral (~2016) Hyperparathyroidism, primary parathyroid removed 2018 Surgical History S/P parathyroidectomy (11/2018) S/P coronary artery stent placement (~2011) KEVIN to first diagnonal branch Hx of tonsillectomy History of total hysterectomy with bilateral salpingo-oophorectomy (BSO) Family History Father , [place] at age 62 Alcohol abuse Depression Heart disease Mother , age 84 Dementia Diabetes Heart disease Hypertension Colon cancer Sister Heart disease Brother COPD (chronic obstructive pulmonary disease) Brother , age 57 Alcohol abuse Depression Son Diabetes Hyperlipidemia Daughter Depression Hypertension Maternal Grandfather , age 90 Cancer Paternal Grandfather No problems noted. Maternal Grandmother No problems noted. Paternal Grandmother , age 75 No problems noted. Social History Smoking/Tobacco Use Status: Former Tobacco Use tobacco type: cigarettes Quit Date: 03/25/17 Pack-years: 40 Tobacco: How many years used: 40 Second Hand Exposure: Yes Smoking risk assessment performed?: Yes Alcohol Intake: current Alcohol Intake frequency: holidays/special occasions only Alcohol type: beer Drug use: Never Substance use type: does not use Caregiver/Support person: No Household members: family Housing: house Communication Needs: None Do you need help understanding health information?: Often Pets and animals: Yes Pets and animals: cat(s) and dog(s) Sexually active: No Do you think of yourself as: straight/heterosexual Current gender identity: female What is your relationship status?: How often do you talk on the phone with friends or family?: three or more times per week How often do you get together with friends or relatives?: twice per week How often do you attend oriental orthodox or scientology services?: 1-3 times per year Do you belong to any clubs or organized social groups?: no Panel score (0-1 are the most socially isolated patients): 1 What type of physical activity do you participate in: walking Duration: 15-30 minutes/day Frequency: 3-4 times per week Amina/Gnosticism: No preference Special amina needs: No Seatbelt use: always Helmet use: Yes Helmet use: always Drive intox or ride w/intox driver/guide: No Do you feel safe at home: Yes Do you feel safe in your relationship?: Yes Meds Allergies and Home Medications Allergies Allergy/AdvReac Type Severity Reaction Status Date / Time fluconazole (From Diflucan) Allergy Intermediate rash Verified 02/04/25 15:14 cefpodoxime Allergy Rash Verified 02/04/25 15:14 metformin AdvReac Intermediate Intolerable Verified 02/04/25 15:14 diarrhea adhesive tape AdvReac rash Verified 02/04/25 15:14 amoxicillin (From Amoxil) AdvReac rash Verified 02/04/25 15:14 Home Medications Medication Instructions Recorded Confirmed Type aspirin 81 mg tablet,delayed 81 mg PO DAILY #30 tabs 07/03/19 02/04/25 Rx release (Adult Low Dose Aspirin) albuterol sulfate 90 mcg/actuation 2 puff inhalation Q4H PRN wheezing 05/14/24 02/04/25 Rx aerosol inhaler #18 grams apixaban 2.5 mg tablet (Eliquis) 2.5 mg PO BID #180 tabs 05/14/24 02/04/25 Rx atorvastatin 20 mg tablet 20 mg PO DAILY #90 tabs 05/14/24 02/04/25 Rx blood sugar diagnostic (OneTouch #200 ea 05/14/24 12/16/24 Rx Ultra Test strips) blood-glucose meter (OneTouch #1 ea 05/14/24 12/16/24 Rx Ultra2 Meter) bupropion HCl 150 mg 24 hr tablet, 150 mg PO QAM #90 tabs 05/14/24 02/04/25 Rx extended release lancets 30 gauge (OneTouch #200 ea 05/14/24 12/16/24 Rx UltraSoft 2 Lancet) omeprazole 20 mg capsule,delayed 20 mg PO DAILY #90 caps 05/14/24 02/04/25 Rx release mirabegron 25 mg tablet,extended 25 mg PO DAILY #90 tabs 09/18/24 02/04/25 Rx release 24 hr (Myrbetriq) glipizide 2.5 mg tablet 2.5 mg PO DAILY #90 tabs 11/13/24 02/04/25 Rx losartan 100 mg tablet 100 mg PO DAILY #90 tabs 11/13/24 02/04/25 Rx nitroglycerin 0.4 mg sublingual 0.4 mg sublingual Q5-15M PRN chest 11/13/24 02/04/25 Rx tablet pain #25 tabs sertraline 25 mg tablet 25 mg PO DAILY #90 tabs 11/13/24 02/04/25 Rx sertraline 50 mg tablet 50 mg PO DAILY #90 tabs 11/13/24 02/04/25 Rx felodipine 10 mg tablet,extended 10 mg PO DAILY #90 tabs 12/16/24 02/04/25 Rx release 24 hr Exam Narrative Exam Narrative: Alert and oriented X4, no acute distress, neurologically intact, Clear lungs, S1 S2 regular heart, abdomen is obese, non-distended, soft, diffuse tenderness, positive rodríguez's sign , no CVA tenderness, minimal dependent edema right ankle Results Labs 02/04/25 15:57 02/04/25 15:57 Labs: Laboratory Results - last 24 hr 02/04/25 15:57 WBC 8.16 RBC 5.70 H Hgb 15.7 Hct 47.9 H MCV 84 MCH 27.5 MCHC 32.8 RDW 14.0 Plt Count 295 MPV 9.9 Immature Gran % 0.2 Neutrophils % 83.5 Lymphocytes % 8.8 Monocytes % 6.4 Eosinophils % 0.7 Basophils % 0.4 Nucleated RBC % 0.0 Absolute Neutrophils 6.81 H Absolute Lymphocytes 0.72 L Absolute Monocytes 0.52 Absolute Eosinophils 0.06 Absolute Basophils 0.03 VBG Lactate 1.6 Sodium 140 Potassium 4.2 Chloride 104 Carbon Dioxide 24.7 Anion Gap 11.3 H BUN 14 Creatinine 0.7 Est GFR (CKD-EPI 2020) 85.23 Glucose 142 H Calcium 9.6 Magnesium 2.0 Total Bilirubin 0.60 AST 23 ALT 29 Alkaline Phosphatase 70 Total Protein 8.0 Albumin 4.7 Lipase 25 Last Vital Signs Temp 36.4 C L 02/04/25 15:15 Pulse 64 02/04/25 15:15 Resp 18 02/04/25 15:15 BP 146/92 H 02/04/25 15:15 Pulse Ox 96 02/04/25 15:15 Time Spent Time spent with Patient: >75 minutes Time was spent: preparing to see the patient(eg.review tests), obtaining and/or reviewing separately otained hiistory, ordering medications,tests, procedures, referring, communicating with other health complex care nurse, indepentently interpreting results, counseling the patient, care coordination and other
[2025-02-04 18:43] VITALS: BP 148/71; PULSE 63; TEMP 36.5; O2SAT 95
--- NOTE | 2025-02-04 20:22 | W.PC.ACHO ---
Registration Status: REG ER Primary Language: Preferred Language: ED Information & Data Chief Complaint Abd Prob 02/04/25 15:43 Triage Note bilateral upper abd pain 02/04/25 15:07 since yesterday. worse today . hx spleen issue 2 years ago. denies recent injury. denies fever or chills. no change from breathing baseline. c/o nausea which is unusual for her. Medical / Surgical History (Last Reviewed 05/14/24 @ 15:39 by Jennifer Landers NP) Asthma Splenic hemorrhage (~2017) Pulmonary embolism (~2016) DVT of lower extremity, bilateral (~2016) Hyperparathyroidism, primary (Last Reviewed 05/14/24 @ 15:39 by Jennifer Landers NP) S/P parathyroidectomy (11/2018) S/P coronary artery stent placement (~2011) Hx of tonsillectomy History of total hysterectomy with bilateral salpingo-oophorectomy (BSO) Most Recent Vital Signs Temperature 36.5 C 02/04/25 18:43 Temperature Source Oral 02/04/25 18:43 Pulse 63 02/04/25 18:43 Respiratory Rate 18 02/04/25 15:15 Blood Pressure 148/71 H 02/04/25 18:43 Blood Pressure Mean 96 02/04/25 18:43 Blood Pressure Position Sitting 02/04/25 15:15 Pulse Oximetry 95 02/04/25 18:43 Oxygen Delivery Method Room Air 02/04/25 18:43 Oxygen Flow Rate 0 02/04/25 18:43 Pain Level 8 02/04/25 15:15 Comment not taking otc relief did not take morning meds except for glipizide 02/04/25 15:15 Allergies fluconazole (From Diflucan) Allergy (Intermediate, Verified 02/04/25 15:14) rash pt reported cefpodoxime Allergy (Verified 02/04/25 15:14) Rash metformin Adverse Reaction (Intermediate, Verified 02/04/25 15:14) Intolerable diarrhea adhesive tape Adverse Reaction (Verified 02/04/25 15:14) rash silk tape amoxicillin (From Amoxil) Adverse Reaction (Verified 02/04/25 15:14) rash Active Medications Generic Name Dose Route Start Last Admin Trade Name Freq PRN Reason Stop Dose Admin Sodium Chloride 1,000 mls @ 150 mls/hr 02/04/25 15:45 02/04/25 15:59 Saline 1000ml Bag IV 150 mls/hr INFUSION DEBORA Administration Sodium Chloride 0 ml 02/04/25 16:19 02/04/25 16:21 Normal Saline Flush 10 Ml Syr IVP 10 ml PRN PRN Administration Sodium Chloride 50 ml 02/04/25 16:30 02/04/25 16:21 Normal Saline - Diluent 50 Ml Vial IJ 50 ml DIRECTED DEBORA Administration IV IV Catheter Type [Left Saline Lock Antecubital] IV Catheter Gauge [Left 18 Antecubital] Diagnostics 02/04/25 Range/Units 15:57 WBC 8.16 (4.4-10.8) 10^3/uL RBC 5.70 H (3.93-5.22) 10^6/uL Hgb 15.7 (11.2-15.7) g/dL Hct 47.9 H (36.0-46.0) % MCV 84 (80-95) fL MCH 27.5 (27.0-33.0) pg MCHC 32.8 (32.0-36.0) % RDW 14.0 (11.7-14.6) % Plt Count 295 (130-400) 10^3/uL MPV 9.9 (8.0-11.0) fL Immature Gran % 0.2 % Neutrophils % 83.5 % Lymphocytes % 8.8 % Monocytes % 6.4 % Eosinophils % 0.7 % Basophils % 0.4 % Nucleated RBC % 0.0 (0.0-0.3) % Absolute Neutrophils 6.81 H (1.2-6.7) 10^3/uL Absolute Lymphocytes 0.72 L (1.2-3.4) 10^3/uL Absolute Monocytes 0.52 (0.1-0.8) 10^3/uL Absolute Eosinophils 0.06 (0.0-0.7) 10^3/uL Absolute Basophils 0.03 (0.0-0.2) 10^3/uL VBG Lactate 1.6 (<or=2.0) mmol/L Sodium 140 (136-145) mmol/L Potassium 4.2 (3.5-5.1) mmol/L Chloride 104 (98-107) mmol/L Carbon Dioxide 24.7 (20.0-31.0) mmol/L Anion Gap 11.3 H (3-11) mmol/L BUN 14 (9-23) mg/dL Creatinine 0.7 (0.55-1.02) mg/dL Est GFR (CKD-EPI 2020) 85.23 (mL/min/1.73m2) Glucose 142 H (74-106) mg/dL Calcium 9.6 (8.3-10.6) mg/dL Magnesium 2.0 (1.6-2.6) mg/dL Total Bilirubin 0.60 (0.2-1.2) mg/dL AST 23 (<34) U/L ALT 29 (10-49) U/L Alkaline Phosphatase 70 (46-116) U/L Total Protein 8.0 (5.7-8.2) g/dL Albumin 4.7 (3.4-5.0) g/dL Lipase 25 (<53) U/L Intake and Output - 24 Hour Total 02/04/25 15:05 thru 02/04/25 16:35 Intake Total 100 Balance 100 Weight 108.862 kg Intake: IV 100 Falls Risk Assessment History of Falls No History 02/04/25 16:33 Contributing Factors No Factors 02/04/25 16:33 Ambulatory Aids Independent 02/04/25 16:33 Tubes/Lines None 02/04/25 16:33 Gait Evaluation No gait disturbance 02/04/25 16:33 Cognition No cognitive impairment 02/04/25 16:33 Fall Total Score 0 02/04/25 16:33 Level of Risk Standard/Low Risk 02/04/25 16:33 Problems (Last Reviewed 05/14/24 @ 15:39 by Jennifer Landers NP) Discharge planning issues (Acute) Small bowel obstruction (Acute) CAD (coronary artery disease) (Chronic) Type 2 diabetes mellitus (Chronic) Hypertension (Chronic) Hyperlipidemia (Chronic) Chronic anticoagulation (Chronic) Major depressive disorder, recurrent (Chronic) Generalized anxiety disorder (Chronic) GERD (gastroesophageal reflux disease) (Chronic) Obesity, Class III, BMI 40-49.9 (morbid obesity) (Chronic) Overactive bladder (Chronic) Attestation Statement: By documenting the first initial, last name, and credentials of the reporting nurse below, both parties acknowledge that all relevant information regarding the patient handoff has been communicated, and that all questions have been addressed to ensure continuity and safety of care. Additional Patient Information/Comments: Report Received From: Yelitza ZIMMERMAN at 2020
[2025-02-04 20:30] VITALS: BP 122/55; PULSE 63; RESP 16; TEMP 36.1; O2SAT 95
[2025-02-04 21:40] VITALS: BP 122/55; PULSE 63; RESP 16; TEMP 36.1; O2SAT 95
[2025-02-04] MEDS: Lactated Ringers 1,000 ML 50 ML IV (21:56)
[2025-02-04] MEDS: Apixaban 2.5 MG TAB PO (22:36)
[2025-02-04] MEDS: Pantoprazole 40 MG VIAL IVP (22:37)
[2025-02-04] MEDS: Ketorolac 15 MG/ML VIAL IVP (22:37)
[2025-02-05] MEDS: ACETAMINOPHEN 1,000 MG/100 ML BAG 400 MG IVPB ×3 (00:47→22:31)
[2025-02-05 05:42] LABS: Abs Immature Grans 0.02 10^3/uL (0.0-0.06); HCT 41.2 % (36.0-46.0); HGB 13.2 g/dL (11.2-15.7); Immature Grans % 0.3 %; MCH 27.1 pg (27.0-33.0); MCHC 32.0 % (32.0-36.0); MCV 85 fL (80-95); MPV 10.1 fL (8.0-11.0); Platelet Count 245 10^3/uL (130-400); RBC 4.87 10^6/uL (3.93-5.22); RDW 14.1 % (11.7-14.6); RDW-SD 43.7 fL; WBC 6.14 10^3/uL (4.4-10.8)
[2025-02-05 06:06] LABS: Anion Gap 9.9 mmol/L (3-11); BUN 11 mg/dL (9-23); CO2 24.1 mmol/L (20.0-31.0); Calcium 8.6 mg/dL (8.3-10.6); Chloride 108 mmol/L (98-107); Glucose 121 mg/dL (74-106); Potassium 3.6 mmol/L (3.5-5.1); Sodium 142 mmol/L (136-145)
--- NOTE | 2025-02-05 06:23 | DI.RAD_ITS ---
Exam(s) XR ABDOMEN FLAT PLATE EXAM: XR ABDOMEN FLAT PLATE CLINICAL HISTORY: SBO. TECHNIQUE: 2D digital imaging was performed. COMPARISON: CT CT ABDOMEN PELVIS CTA from 02/04/2025 FINDINGS: AP supine view the abdomen-pelvis: There is an IVC filter in place.. There is also interventional Coral material in the splenic artery. The bowel gas pattern is nonspecific in the supine position. No obvious dilated loops and there is air seen throughout the colon. Cannot assess for free air as there is no operate image. Small amount of contrast is noted in the bladder from earlier CT scan. There are degenerative changes in the lumbar spine and mild scoliosis convex right. There are also advanced degenerative changes in both hips. IMPRESSION: Nonspecific bowel gas pattern in the supine position. IVC filter and left upper quadrant coil material in the splenic artery. DATA REPOSITORY: RADIATION DOSE DELIVERED:
--- NOTE | 2025-02-05 07:31 | DI.VRAD_ITS ---
PROCEDURE INFORMATION: Exam: XR Abdomen Exam date and time: 02/05/2025 6:14 AM Age: 69 years old Clinical indication: Other: Sbo; Prior surgery; Surgery date: 6+ months; Surgery type: Hysterectomy. Ivc filter TECHNIQUE: Imaging protocol: Radiologic exam of the abdomen. Views: Frontal supine view of the abdomen. 1 View. COMPARISON: CT ABDOMEN PELVIS CTA 02/04/2025 4:17 PM FINDINGS: Tubes, catheters and devices: Left upper quadrant embolization coils. Gastrointestinal tract: Nonspecific bowel gas pattern. Intraperitoneal space: No free air. Vasculature: IVC filter. Bones/joints: Lumbar spondylosis and dextroconvex scoliosis. IMPRESSION: No acute findings. Dictated and Authenticated by: José Antonio Villela MD. Orderin Amparo Woo MD
[2025-02-05 07:49] VITALS: BP 134/73; PULSE 63; RESP 16; TEMP 36.5; O2SAT 93
--- NOTE | 2025-02-05 07:56 | W.SURGCON ---
Date of service: 02/05/25 Time of Service: 07:56 Assessment and Plan Assessment and plan (1) Partial small bowel obstruction: Status: Acute Assessment and plan: PSBO vs ileus. She has had gastrienteritis symptoms but also is at risk for obstruction with her history of pelvic surgery. At this time there is no indication of bowel ischemia or high risk features to her current obstruction. Recommend conservative management with bowel rest, fluid support, electrolyte management and watchful waiting. She has started to pass gas, hopefully abdominal pain improves as gas bloating decreases. NG tube has not been placed as she has not had any n/v and stomach was not heavily distended on CT. Plan to place NG tube if her condition worsens or if n/v develop. XR this AM is showing gas in colon, consistent with her clinical change. Hopefully she continues to resolve this on her own. (2) Type 2 diabetes mellitus: Status: Chronic Assessment and plan: maintain blood glucose under 200. (3) CAD (coronary artery disease): Status: Chronic (4) Chronic anticoagulation: Status: Chronic Assessment and plan: for history of extensive VTE. Continue for now. No need to hold at this time. (5) History of venous thromboembolism: Status: Chronic Assessment and plan: on chronic anticoagulation for extensive lower extremity and iliac venous thrombosis after IVC placement. She had a splenic bleed while anticoagulated so was taken off and filter placed. she then experienced extensive clot burden and was placed back on anticoagulation. Well documeted in PCP note. History of Present Illness History of Present Illness Chief Complaint: PSBO Narrative: 69-year-old female with a partial small bowel obstruction on CAT scan. She has a complex medical patient with history including HFpEF, CAD, DM2, hypercoagulable state with arterial and venous thromboses and IVC filter in place on anticoagulation. She presented yesterday with 2 days onset of diffuse abdominal pain. She had ongoing diarrhea especially after meals. She had dizziness and nausea. The diarrhea was nonbloody. She stopped passing gas yesterday. She came to the emergency room and labs were obtained and a CAT scan was obtained due to abdominal tenderness. CAT scan showed evidence of partial small bowel obstruction and she was admitted for IV fluid management, bowel rest and observation. She has had hysterectomy in the past. She has not had bowel obstructions as far as she knows. COUNTS INCLUDE 234 BEDS AT THE [facility] All Active Problems (Updated 02/05/25 @ 15:13 by Lady Barrera MD) Partial small bowel obstruction (Acute) Discharge planning issues (Acute) Small bowel obstruction (Acute) CAD (coronary artery disease) (Chronic) S/p KEVIN to first diagonal branch of LAD 2011 Stented coronary artery (Chronic) Type 2 diabetes mellitus (Chronic) NAFLD (nonalcoholic fatty liver disease) (Chronic) Hypertension (Chronic) Hyperlipidemia (Chronic) History of venous thromboembolism (Chronic) 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 (Chronic ~2017) Chronic DVTs of bilateral common femoral veins, superficial femoral vein, and left popliteal vein Presence of IVC filter (Chronic) Chronic anticoagulation (Chronic) Major depressive disorder, recurrent (Chronic) Generalized anxiety disorder (Chronic) Former tobacco use (Chronic) Annual LDCT Primary osteoarthritis of right knee (Chronic) Steroid injection: 03/23/2022; 05/25/2019 Primary osteoarthritis of left knee (Chronic) Steroid injection: 03/23/2022; 05/25/2019 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) GERD (gastroesophageal reflux disease) (Chronic) Obesity, Class III, BMI 40-49.9 (morbid obesity) (Chronic) Urinary incontinence (Chronic) Overactive bladder (Chronic) Sigmoid diverticulosis (Chronic) Nail dystrophy (Acute) Medical History Asthma Splenic hemorrhage (~2017) 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 Pulmonary embolism (~2016) DVT of lower extremity, bilateral (~2016) Hyperparathyroidism, primary parathyroid removed 2018 Surgical History S/P parathyroidectomy (11/2018) S/P coronary artery stent placement (~2011) KEVIN to first diagnonal branch Hx of tonsillectomy History of total hysterectomy with bilateral salpingo-oophorectomy (BSO) Family History Father , [place] at age 62 Alcohol abuse Depression Heart disease Mother , age 84 Dementia Diabetes Heart disease Hypertension Colon cancer Sister Heart disease Brother COPD (chronic obstructive pulmonary disease) Brother , age 57 Alcohol abuse Depression Son Diabetes Hyperlipidemia Daughter Depression Hypertension Maternal Grandfather , age 90 Cancer Paternal Grandfather No problems noted. Maternal Grandmother No problems noted. Paternal Grandmother , age 75 No problems noted. Social History Smoking/Tobacco Use Status: Former Tobacco Use tobacco type: cigarettes Quit Date: 03/25/17 Pack-years: 40 Tobacco: How many years used: 40 Second Hand Exposure: Yes Smoking risk assessment performed?: Yes Alcohol Intake: current Alcohol Intake frequency: holidays/special occasions only Alcohol type: beer Drug use: Never Substance use type: does not use Caregiver/Support person: No Household members: family Housing: apartment Communication Needs: None Do you need help understanding health information?: Often Pets and animals: Yes Pets and animals: cat(s) and dog(s) Sexually active: No Do you think of yourself as: straight/heterosexual Current gender identity: female What is your relationship status?: How often do you talk on the phone with friends or family?: three or more times per week How often do you get together with friends or relatives?: twice per week How often do you attend hoahaoism or restorationist services?: 1-3 times per year Do you belong to any clubs or organized social groups?: no Panel score (0-1 are the most socially isolated patients): 1 What type of physical activity do you participate in: walking Duration: 15-30 minutes/day Frequency: 3-4 times per week Amina/Lutheran: No preference Special amina needs: No Seatbelt use: always Helmet use: Yes Helmet use: always Drive intox or ride w/intox pile driver operator barge mounted: No Do you feel safe at home: Yes Do you feel safe in your relationship?: Yes Exam Narrative Exam Narrative: awake, NAD eomi, MMM midline trachea, neck is symmetric PULM: normal resp effort, equal chest rise with respiration CARDIAC: regular rate, normal perfusion abdomen is rounded, softly distended centrally with moderate tenderness to deep palpation in the upper and middle abdomen. No lower abdominal tenderness. no peritonitis, no guarding. no rebound tenderness. extremities are without deformity speech is clear and coherent mood and affect are congruent, no focal neurological deficits skin without rash Results Last Vital Signs Temp 97.7 F 02/05/25 07:49 Pulse 63 02/05/25 07:49 Resp 16 02/05/25 07:49 BP 134/73 02/05/25 07:49 Pulse Ox 93 02/05/25 07:49 Labs 02/05/25 05:12 02/05/25 05:12 Labs: Laboratory Results - last 24 hr 02/04/25 02/05/25 15:57 05:12 WBC 8.16 6.14 RBC 5.70 H 4.87 Hgb 15.7 13.2 D Hct 47.9 H 41.2 MCV 84 85 MCH 27.5 27.1 MCHC 32.8 32.0 RDW 14.0 14.1 Plt Count 295 245 MPV 9.9 10.1 Immature Gran % 0.2 0.3 Neutrophils % 83.5 63.1 Lymphocytes % 8.8 22.8 Monocytes % 6.4 10.9 Eosinophils % 0.7 2.4 Basophils % 0.4 0.5 Nucleated RBC % 0.0 0.0 Absolute Neutrophils 6.81 H 3.87 Absolute Lymphocytes 0.72 L 1.40 Absolute Monocytes 0.52 0.67 Absolute Eosinophils 0.06 0.15 Absolute Basophils 0.03 0.03 VBG Lactate 1.6 Sodium 140 142 Potassium 4.2 3.6 Chloride 104 108 H Carbon Dioxide 24.7 24.1 Anion Gap 11.3 H 9.9 BUN 14 11 Creatinine 0.7 0.7 Est GFR (CKD-EPI 2020) 85.23 82.42 Glucose 142 H 121 H Calcium 9.6 8.6 Magnesium 2.0 Total Bilirubin 0.60 AST 23 ALT 29 Alkaline Phosphatase 70 Total Protein 8.0 Albumin 4.7 Lipase 25 Imaging Abdominal x-ray: report reviewed and image reviewed Abdomen CT scan report/results: report reviewed and image reviewed
--- NOTE | 2025-02-05 08:42 | INITIAL_ITS ---
Date of service: 02/05/25 Time of Service: 08:43 Care Management Initial Assmt Initial Assessment Reason for Hospitalization: small bowel obstruction Functional Status/Living Situation Patient Presentation: Radha presented to the ED yesterday afternoon with c/o abdominal pain described as severe, diarrhea yesterday morning and severe nausea. Imaging consistent with partial or early small bowel obstruction. Surgery was consulted, no NG tube unless Radha were to develop bilious emesis. Radha was sitting up on the edge of the bed when CM met with her today. She was very pleasant, and very easy to converse with. Radha stated that her pain is better, still present, but better. She is starting to feel hungry, and is hoping that is a good sign. She is still NPO and stated the ice chips aren't cutting it. Radha stated that she is on a bed alarm when CM encouraged her to walk the halls to help get things moving. CM requested her ARMED SECURITY GUARD take her for a walk in the halls. Radha lives alone in an elderly apartment building. She has been there for about 6 months and is enjoying it. She has made some friends, and feels that the residents all look out for one another. Radha stated that [facility] is at the building weekly, [facility] delivers [place] [facility]. Radha has used [facility] in the past. Radha still drives and is independent in the community. Town of Residence: [place] Resides with: Alone Significant Other/Family: Local (sonNam lives in [facility], 2 grandaughters are doing very well for themselves) Natural Supports: Nam Employment Status: Retired (worked mostly retail jobs) Instrumental Activities of Daily Living (ADLs): Independent Activities/Hobbies/SocialSupport: sometimes will engage in the activities at her building, likes to watch TV and stay in bed late Medications Medication Management: No Issues/Barriers identified Physical Functioning/Mobility Assistive Device: none Advance Directives Advance Directives: Do you have an Advance Directive: N , 13:38 AD On File at [facility]: N 06/27/22, 13:38 Date Asked 02/04/25 02/04/25, 15:06 AD Date Reviewed COLST On File at [facility] COLST Date Scanned Code Status Resuscitation Status Full Code Portal Pt does not currently have a portal and education provided: Yes Insurance Coverage/Financial Issues Insurance: BC/BS [place] [facility] Advantage Care Team Visit Care Team Role Provider Type Jennifer Landers, LEE ANN Primary Care Provider NURSE PRACTITIONER Lis Flowers RDN, [place] Other Providers PASTING MACHINE OFFBEARER Malcolm Caro RDN Other Providers PASTING MACHINE OFFBEARER Lady Barrera MD Other Providers [facility] STAFF PHYSICIAN MARVIN Mike Emergency Provider PHYSICIANS EXPERIMENTAL ROCKETSLED MECHANIC Sergey Jennings MD Admit Provider [facility] STAFF PHYSICIAN Attending Provider Discharge Potential Discharge Needs: PCP F/U Appt and Surgical F/U Appt Anticipated Barriers to Discharge: None Identified Patient/Family Education Needs: Review discharge instructions, discuss Ask Me Three Transportation: Private vehicle Plan: Anticipate that Radha will discharge home with no new services. She will f/u with her PCP - has previously scheduled appointments on and 02/15 and 03/08. CM has been in touch with her PCP office who stated that she will need a different hospital f/u because her 02/15 appointment is for nail care. She may also need to f//u with the surgeon. Radha will transport home in a private vehicle and continue per her plan of care. CM will continue to follow. Social Determinants of Health Screening Social Determinants of health last assessed in clinic: 02/05/25 Will the Patient Participate in the Screening?: Yes Do you worry about having a steady place to live?: no Problems where you live: no known problems In the past 12 months, have you had to go without electric, gas, oil or water in your home?: no 1. Within the past 12 months, we worried whether our food would run out before we got money to buy more.: Don't know/refused 2. Within the past 12 months, the food we bought just didn't last and we didn't have money to get more.: Don't know/refused Has lack of transportation kept you from medical appointments or from doing things needed for daily living?: no Has anyone in your life made you feel unsafe or unsupported?: no How hard is it for you to pay for the very basics like food, housing, medical care, and heating? Would you say it is:: Not hard at all Do you want help finding or keeping work or a job?: I do not need or want help If for any reason you need help with day-to-day activities such as bathing, preparing meals, shopping, managing finances, etc., do you get the help you need?: I don’t need any help How often do you feel lonely or isolated from those around you?: Never Do you speak a language other than Maltese at home?: No PFSH All Active Problems (Updated 02/04/25 @ 20:02 by Amna Christensen APRN) Discharge planning issues (Acute) Small bowel obstruction (Acute) CAD (coronary artery disease) (Chronic) S/p KEVIN to first diagonal branch of LAD 2011 Stented coronary artery (Chronic) Type 2 diabetes mellitus (Chronic) NAFLD (nonalcoholic fatty liver disease) (Chronic) Hypertension (Chronic) Hyperlipidemia (Chronic) History of venous thromboembolism (Chronic) 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 (Chronic ~2016) Chronic DVTs of bilateral common femoral veins, superficial femoral vein, and left popliteal vein Presence of IVC filter (Chronic) Chronic anticoagulation (Chronic) Major depressive disorder, recurrent (Chronic) Generalized anxiety disorder (Chronic) Former tobacco use (Chronic) Annual LDCT Primary osteoarthritis of right knee (Chronic) Steroid injection: 03/23/2022; 05/25/2019 Primary osteoarthritis of left knee (Chronic) Steroid injection: 03/23/2022; 05/25/2019 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) GERD (gastroesophageal reflux disease) (Chronic) Obesity, Class III, BMI 40-49.9 (morbid obesity) (Chronic) Urinary incontinence (Chronic) Overactive bladder (Chronic) Sigmoid diverticulosis (Chronic) Nail dystrophy (Acute) Medical History Asthma Splenic hemorrhage (~2017) 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 Pulmonary embolism (~2016) DVT of lower extremity, bilateral (~2016) Hyperparathyroidism, primary parathyroid removed 2018 Surgical History S/P parathyroidectomy (11/2018) S/P coronary artery stent placement (~2011) KEVIN to first diagnonal branch Hx of tonsillectomy History of total hysterectomy with bilateral salpingo-oophorectomy (BSO) Family History Father , [place] at age 62 Alcohol abuse Depression Heart disease Mother , age 84 Dementia Diabetes Heart disease Hypertension Colon cancer Sister Heart disease Brother COPD (chronic obstructive pulmonary disease) Brother , age 57 Alcohol abuse Depression Son Diabetes Hyperlipidemia Daughter Depression Hypertension Maternal Grandfather , age 90 Cancer Paternal Grandfather No problems noted. Maternal Grandmother No problems noted. Paternal Grandmother , age 75 No problems noted. Social History Smoking/Tobacco Use Status: Former Tobacco Use tobacco type: cigarettes Quit Date: 03/25/17 Pack-years: 40 Tobacco: How many years used: 40 Second Hand Exposure: Yes Smoking risk assessment performed?: Yes Alcohol Intake: current Alcohol Intake frequency: holidays/special occasions only Alcohol type: beer Drug use: Never Substance use type: does not use Caregiver/Support person: No Household members: family Housing: apartment Communication Needs: None Do you need help understanding health information?: Often Pets and animals: Yes Pets and animals: cat(s) and dog(s) Sexually active: No Do you think of yourself as: straight/heterosexual Current gender identity: female What is your relationship status?: How often do you talk on the phone with friends or family?: three or more times per week How often do you get together with friends or relatives?: twice per week How often do you attend christianity or mosque services?: 1-3 times per year Do you belong to any clubs or organized social groups?: no Panel score (0-1 are the most socially isolated patients): 1 What type of physical activity do you participate in: walking Duration: 15-30 minutes/day Frequency: 3-4 times per week Amina/Sikhism: No preference Special amina needs: No Seatbelt use: always Helmet use: Yes Helmet use: always Drive intox or ride w/intox driver utility worker: No Do you feel safe at home: Yes Do you feel safe in your relationship?: Yes
[2025-02-05] MEDS: Losartan 50 MG TAB 100 MG PO (12:32)
[2025-02-05] MEDS: Sertraline 25 MG TAB PO (12:32)
[2025-02-05] MEDS: Ketorolac 15 MG/ML VIAL IVP (12:32)
[2025-02-05] MEDS: Apixaban 2.5 MG TAB PO ×2 (12:33→22:25)
[2025-02-05] MEDS: Atorvastatin 20 MG TAB PO (12:33)
[2025-02-05] MEDS: Felodipine 2.5 MG TABCR 10 MG PO (12:33)
[2025-02-05] MEDS: Aspirin E.C. 81 MG TABEC PO (12:33)
[2025-02-05] MEDS: Mirabegron 25 MG TABCR PO (12:33)
[2025-02-05] MEDS: Pantoprazole 40 MG VIAL IVP (12:34)
[2025-02-05] MEDS: buPROPion-XL 150 MG TABCR PO (12:34)
[2025-02-05] MEDS: Sertraline 50 MG TAB PO (12:34)
[2025-02-05] MEDS: Normal Saline Flush 10 ML SYR IVP (12:36)
[2025-02-05 13:52] LABS: Glucose Negative (Negative)
[2025-02-05 14:06] LABS: C & S Indicated? No; RBC 0-2 HPF (0-2); WBC 0-2 HPF (0-5)
[2025-02-05] MEDS: Lactated Ringers 1,000 ML 50 ML IV (17:56)
--- NOTE | 2025-02-05 18:03 | W.PM.PROGNOT ---
Date of Service Date of service: 02/05/25 Time of Service: 18:03 Assessment and Plan Assessment and plan (1) Small bowel obstruction: Status: Acute Assessment and plan: Patient’s presentation may represent either a partial small bowel obstruction or an ileus. She has had symptoms consistent with gastroenteritis but is also at increased risk for obstruction given her prior pelvic surgery. Currently, there are no signs of bowel ischemia or other high-risk features. Conservative management is recommended, including bowel rest, IV fluids, electrolyte optimization, and close monitoring. She has begun passing flatus, which is reassuring and may correlate with improvement in her abdominal discomfort as gaseous distention decreases. An NG tube has not been placed due to the absence of nausea/vomiting and lack of significant gastric distention on CT; however, placement will be reconsidered if her condition worsens or if n/v develop. This morning’s abdominal X-ray demonstrates gas throughout the colon, consistent with her improving clinical status. Continued spontaneous resolution is anticipated. (2) CAD (coronary artery disease): Status: Chronic Assessment and plan: Continue home medicine regimen (3) Type 2 diabetes mellitus: Status: Chronic Assessment and plan: Hold glipizide POCT glucose monitoring Q6 while NPO with SSI coverage (4) Hypertension: Status: Chronic Assessment and plan: Continue home medicine regimen (5) Hyperlipidemia: Status: Chronic Assessment and plan: Continue home medicine regimen (6) Major depressive disorder, recurrent: Status: Chronic Assessment and plan: Continue home meds regimen (7) Generalized anxiety disorder: Status: Chronic Assessment and plan: Continue home medicine regimen (8) GERD (gastroesophageal reflux disease): Status: Chronic Assessment and plan: Continue IV PPI (9) Splenic hemorrhage: Assessment and plan: History of, had embolization done and appears stable (10) Obesity, Class III, BMI 40-49.9 (morbid obesity): Status: Chronic Assessment and plan: As per BMI Nutrition consultation and PCP f/u (11) Overactive bladder: Status: Chronic Assessment and plan: Continue home medicine regimen (12) Chronic anticoagulation: Status: Chronic Assessment and plan: For repeated DVT - ongoing home dose eliquis (13) Discharge planning issues: Status: Acute Assessment and plan: discharge 24-48 hours at best Discussed with Dr. Jennings Subjective Subjective Patient reports: no new complaints Exam Const General: cooperative, healthy appearing, comfortable and no acute distress Orientation: alert, awake and oriented x3 HENMT Head: normal to inspection, normocephalic and atraumatic Mouth: moist mucous membranes Eyes Conjunctivae: conjunctivae normal Neck Neck: normal visual inspection, full ROM, trachea midline and supple Resp Effort & Inspection: normal respiratory effort and able to speak in complete sentences Auscultation: clear to auscultation bilaterally Cardio Rate: regular rate Rhythm: regular rhythm GI Inspection: normal to inspection and obesity Palpation: soft, not firm and no guarding Auscultation: normal bowel sounds Back/Spine/Pelvis Back: no CVA tenderness and No back tenderness Skin General skin exam: no rashes or lesions noted Neuro General: patient alert, patient awake, moves all extremities and no focal motor deficits Cognition: normal cognition Speech: speech normal Gait: normal gait Sensory Exam: no sensory deficits noted Extrem General: normal to inspection, full ROM, capillary refill normal, no pedal edema and no calf tenderness Psych Appearance: grossly normal Mental Status: mental status grossly normal Objective Last Vital Signs Temp 36.5 C 02/05/25 07:49 Pulse 63 02/05/25 07:49 Resp 16 02/05/25 07:49 BP 134/73 02/05/25 07:49 Pulse Ox 93 02/05/25 07:49 Laboratory Results - last 24 hr 02/05/25 02/05/25 05:12 13:00 WBC 6.14 RBC 4.87 Hgb 13.2 D Hct 41.2 MCV 85 MCH 27.1 MCHC 32.0 RDW 14.1 Plt Count 245 MPV 10.1 Immature Gran % 0.3 Neutrophils % 63.1 Lymphocytes % 22.8 Monocytes % 10.9 Eosinophils % 2.4 Basophils % 0.5 Nucleated RBC % 0.0 Absolute Neutrophils 3.87 Absolute Lymphocytes 1.40 Absolute Monocytes 0.67 Absolute Eosinophils 0.15 Absolute Basophils 0.03 Sodium 142 Potassium 3.6 Chloride 108 H Carbon Dioxide 24.1 Anion Gap 9.9 BUN 11 Creatinine 0.7 Est GFR (CKD-EPI 2020) 82.42 Glucose 121 H Calcium 8.6 Urine Color Yellow Urine Clarity Clear Urine pH 5.5 Ur Specific [place] 1.015 Urine Protein Negative Urine Ketones Negative Urine Blood Trace-lysed H Urine Nitrite Negative Urine Bilirubin Negative Urine Urobilinogen 0.2 Ur Leukocyte Esterase Negative Urine RBC 0-2 Urine WBC 0-2 Ur Epithelial Cells Moderate Urine Crystals Negative Urine Bacteria Moderate Urine Casts Negative Urine Mucus Negative Ur Culture Indicated? No Urine Glucose Negative Time Spent with Patient Time Spent with Patient: 25-34 minutes Time was spent: preparing to see the patient(eg.review tests), ordering medications,tests, procedures, referring, communicating with other health memory care program director, indepentently interpreting results, counseling the patient and care coordination
[2025-02-05 19:49] VITALS: BP 105/48; PULSE 63; RESP 16; TEMP 36.8; O2SAT 94
[2025-02-06 06:53] LABS: Abs Immature Grans 0.01 10^3/uL (0.0-0.06); HCT 41.0 % (36.0-46.0); HGB 13.4 g/dL (11.2-15.7); Immature Grans % 0.2 %; MCH 28.0 pg (27.0-33.0); MCHC 32.7 % (32.0-36.0); MCV 86 fL (80-95); MPV 10.0 fL (8.0-11.0); Platelet Count 246 10^3/uL (130-400); RBC 4.79 10^6/uL (3.93-5.22); RDW 14.0 % (11.7-14.6); RDW-SD 43.4 fL; WBC 4.04 10^3/uL (4.4-10.8)
[2025-02-06 07:14] VITALS: BP 144/84; PULSE 66; RESP 16; TEMP 36.6; O2SAT 96
[2025-02-06 07:14] LABS: Magnesium 1.9 mg/dL (1.6-2.6)
[2025-02-06 07:19] LABS: Anion Gap 10.4 mmol/L (3-11); BUN 8 mg/dL (9-23); CO2 24.6 mmol/L (20.0-31.0); Calcium 8.4 mg/dL (8.3-10.6); Chloride 108 mmol/L (98-107); Glucose 121 mg/dL (74-106); Potassium 3.6 mmol/L (3.5-5.1); Sodium 143 mmol/L (136-145)
[2025-02-06] MEDS: Pantoprazole 40 MG VIAL IVP (08:44)
[2025-02-06] MEDS: Felodipine 2.5 MG TABCR 10 MG PO (08:44)
[2025-02-06] MEDS: Atorvastatin 20 MG TAB PO (08:44)
[2025-02-06] MEDS: Sertraline 50 MG TAB PO (08:45)
[2025-02-06] MEDS: Apixaban 2.5 MG TAB PO (08:45)
[2025-02-06] MEDS: Aspirin E.C. 81 MG TABEC PO (08:45)
[2025-02-06] MEDS: Sertraline 25 MG TAB PO (08:45)
[2025-02-06] MEDS: Normal Saline Flush 10 ML SYR IVP (08:45)
[2025-02-06] MEDS: buPROPion-XL 150 MG TABCR PO (08:45)
[2025-02-06] MEDS: Losartan 50 MG TAB 100 MG PO (08:45)
[2025-02-06] MEDS: Mirabegron 25 MG TABCR PO (08:45)
--- NOTE | 2025-02-06 10:21 | DSE_ITS ---
Date of service: 02/06/25 Time of Service: 10:21 DS: Diagnosis Discharge Diagnosis (1) Small bowel obstruction: Status: Acute (2) CAD (coronary artery disease): Status: Chronic (3) Type 2 diabetes mellitus: Status: Chronic (4) Hypertension: Status: Chronic (5) Hyperlipidemia: Status: Chronic (6) Major depressive disorder, recurrent: Status: Chronic (7) Generalized anxiety disorder: Status: Chronic (8) GERD (gastroesophageal reflux disease): Status: Chronic (9) Obesity, Class III, BMI 40-49.9 (morbid obesity): Status: Chronic (10) Overactive bladder: Status: Chronic (11) Chronic anticoagulation: Status: Chronic (12) Discharge planning issues: Status: Acute Discharge Plan Disposition Patient Disposition: Home Condition: Improving Discharge Details Reason For Visit: SBO Admit Date/Time: 02/04/25 18:29 Admit Provider: Sergey Jennings Attending Provider: Sergey Jennings [facility] [facility] Course: 69-year-old morbidly obese female with a significant medical history including HFpEF, MASLD, asthma, remote [id number] smoking history, HTN, CAD, DM2, HLD, recurrent VTE on Eliquis, prior splenic hemorrhage s/p embolization, and IVC filter placement, presented to the ED with 2 days of worsening diffuse, non- radiating abdominal pain and postprandial diarrhea. She also reported dizziness and nausea. No vomiting, hematochezia, melena, fevers, chest pain, or dyspnea. CT abdomen/pelvis in the ED demonstrated a partial or early small bowel obstruction. Labs showed no actionable abnormalities. Surgery was consulted and recommended conservative management: NPO except ice chips, no NG tube unless clinical deterioration, and no gastrografin at this stage. The patient confirmed full code status The patient improved, abdominal film with improved with gas throughout colon; her diet was advanced. Positive bowel sounds in four quadrants. Patient was discharged to home with no services. Recommend advancing diet slowly as tolerated, start miralax daily and follow up with PCP in one week. Home Meds and New Rx's Prescriptions: Continued albuterol sulfate 90 mcg/actuation HFA aerosol inhaler 2 puff IH Q4H PRN (Reason: wheezing) Qty: 18 3RF Eliquis 2.5 mg tablet 2.5 mg PO BID Qty: 180 3RF atorvastatin 20 mg tablet 20 mg PO DAILY Qty: 90 3RF bupropion HCl 150 mg tablet extended release 24 hr 150 mg PO QAM Qty: 90 3RF omeprazole 20 mg capsule,delayed release(DR/EC) 20 mg PO DAILY Qty: 90 3RF (DME) lancets [OneTouch UltraSoft 2 Lancet] 30 gauge misc See Rx Instructions .MEDSUPPLY Qty: 200 3RF Rx Instructions: Check blood sugar twice a day (DME) OneTouch Ultra Test Strip See Rx Instructions .MEDSUPPLY Qty: 200 3RF Rx Instructions: Check blood sugar twice a day (DME) blood-glucose meter [OneTouch Ultra2 Meter] Misc See Rx Instructions .Route Qty: 1 3RF Rx Instructions: Check blood sugar twice a day nitroglycerin 0.4 mg tablet, sublingual 0.4 mg sublingual Q5-15M PRN (Reason: chest pain) Qty: 25 3RF Rx Instructions: 1 tablet every 5 minutes x 3 doses if needed for chest pain. Seek emergency services if not improving after first dose sertraline 25 mg tablet 25 mg PO DAILY Qty: 90 3RF Rx Instructions: Take with 50 mg dose for a total of 75 mg daily. sertraline 50 mg tablet 50 mg PO DAILY Qty: 90 3RF glipizide 2.5 mg tablet 2.5 mg PO DAILY Qty: 90 3RF losartan 100 mg tablet 100 mg PO DAILY Qty: 90 3RF felodipine 10 mg tablet extended release 24 hr 10 mg PO DAILY Qty: 90 3RF aspirin [Adult Low Dose Aspirin] 81 mg tablet,delayed release (DR/EC) 81 mg PO DAILY Qty: 30 0RF Myrbetriq 25 mg tablet extended release 24 hr 25 mg PO DAILY Qty: 90 3RF Discharge Instructions Instructions: Small Bowel Obstruction (DC) Additional Instructions: * Your symptoms improved with treatment; continue a gradual return to eating, starting with clear liquids and advancing to soft foods as tolerated. * Light activity is fine; avoid heavy lifting or straining until your symptoms fully resolve. * Stay hydrated—sip fluids throughout the day. * Take all medications as prescribed; avoid opioids if possible, as they can worsen constipation. * Start Miralax 17 g daily. * Monitor for symptoms: worsening abdominal pain, persistent vomiting, bloating, inability to pass gas or stool, fever, or increasing weakness. * If symptoms return or worsen, seek medical attention immediately or return to the Emergency Department. * Avoid heavy lifting or straining until fully recovered. * Keep follow-up appointments with your primary care provider next week. Stand Alone Forms: Portal Information Referrals: Jennifer Landers NP [Primary Care Provider, Medicine] Referral Note: 1 week post hospitalization for partial SBO Your pcp will call to schedule your follow up, please reach out if you haven't heard from them Activity:: Activity as Tolerated Equipment/Supplies:: No Equipment Needed Diet:: advance as tolerated Discharge Orders Discharge Orders: Discharge Order (Routine); Ordered 02/06/25 Ordered By: Karmen Whitfield Discharge Data Discharge Date/Time-TO BE ENTERED AT DEPARTURE: 02/06/25 11:18 DS: Summary Time Spent with Patient providing and/or coordinating discharge services: Greater than 30 minutes Status at Discharge Functional status at discharge: independent ambulation Overall status at discharge: patient is progressing back to baseline Mental Status: mental status grossly normal Speech and Movement: speech and movement normal Mood: congruent mood Affect: normal affect Quality:SDOH Health Related Social Needs: Health related social needs risk of homeless house/eco n circumstance daily activities lonely/isolated Exam Narrative Exam Narrative: * General: Alert, oriented ×4, no acute distress * Lungs: Clear to auscultation * Heart: Regular rate and rhythm * Abdomen: Obese, nondistended, soft; no guarding or rebound, denies tenderness/pain * Neuro: Intact, no focal deficits * Extremities: Mild dependent edema right ankle * Skin: No rash Psych Mental Status: mental status grossly normal Speech and Movement: speech and movement normal Mood: congruent mood Affect: normal affect DS: Data Vitals/I&O Vitals and I&O: Vital Signs Temperature 36.6 C 02/06/25 07:14 Temperature Source Temporal Artery Scan 02/06/25 07:14 Pulse 66 02/06/25 07:14 Pulse Rhythm Regular 02/04/25 21:40 Respiratory Rate 16 02/06/25 07:14 Respiratory Effort Normal 02/04/25 21:40 Respiratory Depth Normal 02/04/25 21:40 Respiratory Pattern Normal 02/04/25 21:40 Blood Pressure 144/84 H 02/06/25 07:14 Blood Pressure Mean 104 02/06/25 07:14 Blood Pressure Position Sitting 02/04/25 15:15 Pulse Oximetry 96 02/06/25 07:14 Oxygen Delivery Method Room Air 02/06/25 07:14 Oxygen Flow Rate 0 02/06/25 07:14 Pain Level 0 02/06/25 07:14 Comment not taking otc relief did not take morning meds except for glipizide 02/04/25 15:15 Intake & Output 02/05/25 02/05/25 02/06/25 11:59 23:59 11:59 Intake Total 320 / 1670 1350 / 1670 150 / 150 Output Total 200 / 600 400 / 600 Balance 120 / 1070 950 / 1070 150 / 150 Intake: IV 220 / 1420 1200 / 1420 Oral 100 / 250 150 / 250 150 / 150 Output: Urine 200 / 600 400 / 600 Other: Urine Color Straw Pale Yellow Urine Appearance Mucous Threads Clear Urine Odor Strong Normal Comment Pt peed, but missed hat, urine sample again unable to be collected. Pt voids ind. into the toilet. Data Completed and Pending Pending Labs at Discharge: 02/04/25 02/05/25 02/05/25 15:57 05:12 13:00 WBC 8.16 6.14 RBC 5.70 H 4.87 Hgb 15.7 13.2 D Hct 47.9 H 41.2 MCV 84 85 MCH 27.5 27.1 MCHC 32.8 32.0 RDW 14.0 14.1 Plt Count 295 245 MPV 9.9 10.1 Immature Gran % 0.2 0.3 Neutrophils % 83.5 63.1 Lymphocytes % 8.8 22.8 Monocytes % 6.4 10.9 Eosinophils % 0.7 2.4 Basophils % 0.4 0.5 Nucleated RBC % 0.0 0.0 Absolute Neutrophils 6.81 H 3.87 Absolute Lymphocytes 0.72 L 1.40 Absolute Monocytes 0.52 0.67 Absolute Eosinophils 0.06 0.15 Absolute Basophils 0.03 0.03 VBG Lactate 1.6 Sodium 140 142 Potassium 4.2 3.6 Chloride 104 108 H Carbon Dioxide 24.7 24.1 Anion Gap 11.3 H 9.9 BUN 14 11 Creatinine 0.7 0.7 Est GFR (CKD-EPI 2020) 85.23 82.42 Glucose 142 H 121 H Calcium 9.6 8.6 Magnesium 2.0 Total Bilirubin 0.60 AST 23 ALT 29 Alkaline Phosphatase 70 Total Protein 8.0 Albumin 4.7 Lipase 25 Urine Color Yellow Urine Clarity Clear Urine pH 5.5 Ur Specific [place] 1.015 Urine Protein Negative Urine Ketones Negative Urine Blood Trace-lysed H Urine Nitrite Negative Urine Bilirubin Negative Urine Urobilinogen 0.2 Ur Leukocyte Esterase Negative Urine RBC 0-2 Urine WBC 0-2 Ur Epithelial Cells Moderate Urine Crystals Negative Urine Bacteria Moderate Urine Casts Negative Urine Mucus Negative Ur Culture Indicated? No Urine Glucose Negative 02/06/25 06:38 WBC 4.04 L RBC 4.79 Hgb 13.4 Hct 41.0 MCV 86 MCH 28.0 MCHC 32.7 RDW 14.0 Plt Count 246 MPV 10.0 Immature Gran % 0.2 Neutrophils % 61.2 Lymphocytes % 23.5 Monocytes % 11.9 Eosinophils % 2.5 Basophils % 0.7 Nucleated RBC % 0.0 Absolute Neutrophils 2.47 Absolute Lymphocytes 0.95 L Absolute Monocytes 0.48 Absolute Eosinophils 0.10 Absolute Basophils 0.03 VBG Lactate Sodium 143 Potassium 3.6 Chloride 108 H Carbon Dioxide 24.6 Anion Gap 10.4 BUN 8 L Creatinine 0.7 Est GFR (CKD-EPI 2020) 82.42 Glucose 121 H Calcium 8.4 Magnesium 1.9 Total Bilirubin AST ALT Alkaline Phosphatase Total Protein Albumin Lipase Urine Color Urine Clarity Urine pH Ur Specific [place] Urine Protein Urine Ketones Urine Blood Urine Nitrite Urine Bilirubin Urine Urobilinogen Ur Leukocyte Esterase Urine RBC Urine WBC Ur Epithelial Cells Urine Crystals Urine Bacteria Urine Casts Urine Mucus Ur Culture Indicated? 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 (Chronic ~2017) Chronic DVTs of bilateral common femoral veins, superficial femoral vein, and left popliteal vein Presence of IVC filter (Chronic) Chronic anticoagulation (Chronic) Major depressive disorder, recurrent (Chronic) Generalized anxiety disorder (Chronic) Former tobacco use (Chronic) Annual LDCT Primary osteoarthritis of right knee (Chronic) Steroid injection: 03/23/2022; 05/25/2019 Primary osteoarthritis of left knee (Chronic) Steroid injection: 03/23/2022; 05/25/2019 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) GERD (gastroesophageal reflux disease) (Chronic) Obesity, Class III, BMI 40-49.9 (morbid obesity) (Chronic) Urinary incontinence (Chronic) Overactive bladder (Chronic) Sigmoid diverticulosis (Chronic) Nail dystrophy (Acute) Medical History Asthma Splenic hemorrhage (~2017) 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 Pulmonary embolism (~2016) DVT of lower extremity, bilateral (~2016) Hyperparathyroidism, primary parathyroid removed 2018 Surgical History S/P parathyroidectomy (11/2018) S/P coronary artery stent placement (~2011) KEVIN to first diagnonal branch Hx of tonsillectomy History of total hysterectomy with bilateral salpingo-oophorectomy (BSO) Family History Father , [place] at age 62 Alcohol abuse Depression Heart disease Mother , age 84 Dementia Diabetes Heart disease Hypertension Colon cancer Sister Heart disease Brother COPD (chronic obstructive pulmonary disease) Brother , age 57 Alcohol abuse Depression Son Diabetes Hyperlipidemia Daughter Depression Hypertension Maternal Grandfather , age 90 Cancer Paternal Grandfather No problems noted. Maternal Grandmother No problems noted. Paternal Grandmother , age 75 No problems noted. Social History Smoking/Tobacco Use Status: Former Tobacco Use tobacco type: cigarettes Quit Date: 03/25/17 Pack-years: 40 Tobacco: How many years used: 40 Second Hand Exposure: Yes Smoking risk assessment performed?: Yes Alcohol Intake: current Alcohol Intake frequency: holidays/special occasions only Alcohol type: beer Drug use: Never Substance use type: does not use Caregiver/Support person: No Household members: family Housing: apartment Communication Needs: None Do you need help understanding health information?: Often Pets and animals: Yes Pets and animals: cat(s) and dog(s) Sexually active: No Do you think of yourself as: straight/heterosexual Current gender identity: female What is your relationship status?: How often do you talk on the phone with friends or family?: three or more times per week How often do you get together with friends or relatives?: twice per week How often do you attend temple or sabianist services?: 1-3 times per year Do you belong to any clubs or organized social groups?: no Panel score (0-1 are the most socially isolated patients): 1 What type of physical activity do you participate in: walking Duration: 15-30 minutes/day Frequency: 3-4 times per week Amina/Zoroastrianism: No preference Special amina needs: No Seatbelt use: always Helmet use: Yes Helmet use: always Drive intox or ride w/intox auto carrier driver: No Do you feel safe at home: Yes Do you feel safe in your relationship?: Yes Time Spent with Patient Time Spent with Patient: 45-69 minutes Time was spent: preparing to see the patient(eg.review tests), ordering m edications,tests, procedures, referring, communicating with other health home health care respiratory therapist, indepentently interpreting results, counseling the patient and care coordination
--- NOTE | 2025-02-06 13:37 | CMDISCH_ITS ---
Date of service: 02/06/25 Time of Service: 13:37 LACE Index Scoring Tool Questions: Length of Stay (in days): 2 Was the patient admitted via the E.D.?: Yes Comorbidities: Diabetes w/o Complication and Liver or Renal Disease E.D. Visits: 0 Answers: Total Score: 10 Risk of Readmission: High Risk Care Management Discharge Plan Reason for Hospitalization: SBO Discharge Plan: Radha returned home today with no new services. She transported home via private vehicle. She will follow up with her PCP and discharge plan of care. She was happy to be going home. Patient/Family Education Needs: Review discharge instructions and limitations, discussion of self care needs including ask me three. SDOH Health Related Social Needs: Health related social needs risk of homeless house/eco n circumstance daily activities lonely/isolated
== END 2025-02-06 11:18 | disposition home or self-care (01) ==
LOC: ER 17:24 → MS 20:42
PROVIDERS: Nurse Practitioner Acute Care; Admitting Provider Family Medicine; Emergency Provider Physician Assistant; PCP Nurse Practitioner Family; Responsible Provider Nurse Practitioner Family; Visit Provider Family Medicine
DX: K56.600 Partial intestinal obstruction, unspecified as to cause (principal); I25.10 Atherosclerotic heart disease of native coronary artery without angina pectoris; E11.9 Type 2 diabetes mellitus without complications; Z79.01 Long term (current) use of anticoagulants; Z86.718 Personal history of other venous thrombosis and embolism; Z95.828 Presence of other vascular implants and grafts; I50.30 Unspecified diastolic (congestive) heart failure; R42 Dizziness and giddiness; R11.0 Nausea; Z95.5 Presence of coronary angioplasty implant and graft; K76.0 Fatty (change of) liver, not elsewhere classified; F33.9 Major depressive disorder, recurrent, unspecified; F41.1 Generalized anxiety disorder; Z87.891 Personal history of nicotine dependence; K21.9 Gastro-esophageal reflux disease without esophagitis; E66.813 Obesity, class 3; R32 Unspecified urinary incontinence; K57.30 Diverticulosis of large intestine without perforation or abscess without bleeding; Z86.711 Personal history of pulmonary embolism; J45.909 Unspecified asthma, uncomplicated; E89.2 Postprocedural hypoparathyroidism; Z79.84 Long term (current) use of oral hypoglycemic drugs; I11.0 Hypertensive heart disease with heart failure; Z59.811 Housing instability, housed, with risk of homelessness; Z59.9 Problem related to housing and economic circumstances, unspecified; R45.89 Other symptoms and signs involving emotional state
CPT/HCPCS: 00123; 36415; 80048; 80053; 83690; 96361; 96365; 99222; 99285; 74018; 74174; 81003; 81015; 83605; 83735; 85025; 99223; 99231; 99239; G0378; J0131; J1815; J1885; J2470; J3490